=== PATIENT | female | born 1965 | race Caucasian/White ===

== ENCOUNTER 2019-12-28 19:03 | Emergency (ER) | payer BC, SELFPAY ==
--- NOTE | ~2019-12-28 | XR_ITS ---
EXAMINATION: XR shoulder RT min 2V INDICATION: Right shoulder pain TECHNIQUE: Four views of the right shoulder are submitted. COMPARISON: 01/17/2017 FINDINGS: Normal alignment. No fracture. There is mild osteoarthritis of the glenohumeral and acromio clavicular joints. Soft tissues are unremarkable. IMPRESSION: 1. No acute osseous abnormality. Reviewed, dictated and finalized at location A.
--- NOTE | 2019-12-28 19:19 | ED.UPPEXIN ---
HPI - Extremity Injury (Upper) General Chief Complaint: Extremity Injury, Upper Stated Complaint: fell right shoulder pain Time Seen by Provider: 12/28/19 19:20 Source: patient Mode of arrival: ambulatory Limitations: no limitations History of Present Illness HPI narrative: Adalgisa Meng is a 54 yo female with a PMH of diabetes, depression, hypothyroid, HTN, high cholesterol, neuropathy, who fell and hurt R shoulder. States she was just walking 5 days ago- was sweeping yesterday and hurts more now blood pressure is poorly controlled as well as diabetes. Patient's blood sugar runs high 2 days ago was 210 does not check it regularly, states she takes blood pressure medication but again her blood pressure is usually elevated Related Data Home Medications Medication Instructions Recorded Confirmed buspirone 15 mg TID 12/28/19 01/02/20 gabapentin 400 mg TID 12/28/19 01/02/20 glipizide 10 mg BID 12/28/19 01/02/20 hydrochlorothiazide 25 mg DAILY 12/28/19 01/02/20 levothyroxine 25 mcg DAILY 12/28/19 01/02/20 lisinopril 40 mg DAILY 12/28/19 01/02/20 sertraline 25 mg DAILY 12/28/19 01/02/20 simvastatin 40 mg DAILY 12/28/19 01/02/20 Allergies Allergy/AdvReac Type Severity Reaction Status Date / Time No Known Allergies Allergy Verified 12/28/19 19:07 Review of Systems Review of Systems: Narrative: CONSTITUTIONAL: Denies fever, chills, sweats. EYES: Denies visual changes, redness, discharge. ENT: Denies rhinorrhea, congestion, sore throat, otalgia. CARDIOVASCULAR: Denies chest pain, palpitations, edema. RESPIRATORY: Denies dyspnea, wheezing, cough GASTROINTESTINAL: Denies abdominal pain, nausea, vomiting, diarrhea. GENITOURINARY: Denies dysuria, hematuria, abnormal discharge SKIN: Denies rash or itching. NEUROLOGIC: Denies numbness, or focal weakness. PSYCHIATRIC: Denies anxiety or depression. Right shoulder pain, remote injury PMFSH Social History Social History Gender identity (if verbalized by the patient): Female Comments At time of signature, I agree with nursing past medical, surgical, social and family history. There is no relevant family history pertinent to the presenting complaint. Exam Narrative: Exam Narrative: GENERAL: This is a well-nourished, well-developed patient,morbidly obese, in mild distress. HEAD: normocephalic, atraumatic. EYES: Sclera clear/white. Vision is grossly intact. EARS: External ears normal, Hearing grossly intact. NOSE: External nose normal without nasal discharge, nares without redness, no rhinorrhea. THROAT: Mucous membranes moist, NECK: Neck supple, CARDIOVASCULAR: Regular rate and rhythm without murmurs, gallops, or rubs. RESPIRATORY: Clear to auscultation. Breath sounds equal bilaterally. No wheezes, rales, or rhonchi. GASTROINTESTINAL: Abdomen soft, SKIN: warm, intact with no suspicious lesions or rash, good texture and turgor. NEURO: awake, alert, and oriented to person, place and time. There were no obvious focal neurologic abnormalities. Steady gait EXTREMITIES: Normal range of motion. R shoulder pain with pain on extension, forward movement on top of shoulder and under arm, unable to full move arm posteriorly, cut out stitcher strength equal bilaterally BACK: Nontender without deformity Course Course Emergency Course: X-ray right shoulder Baclofen and tramadol due to patient's high blood pressure Vital Signs Vital signs: Vital Signs Temperature 97.5 F L 12/28/19 19:21 Pulse Rate 81 12/28/19 19:21 Respiratory Rate 18 12/28/19 19:21 Blood Pressure 190/98 H 12/28/19 19:21 Pulse Oximetry 99 12/28/19 19:21 Temperature 97.5 F L 12/28/19 19: Pulse Rate 81 12/28/19 19:21 Respiratory Rate 18 12/28/19 19:21 Blood Pressure 190/98 H 12/28/19 19:21 Pulse Oximetry 99 12/28/19 19:21 MDM - Extremity Injury (Upper) Differential Diagnosis Differential diagnosis: Likely dislocation of shoulder, fr
[2019-12-28 19:21] VITALS: BP 190/98; PULSE 81; RESP 18; TEMP 36.4; O2SAT 99
== END 2019-12-28 19:56 | disposition home or self-care (01) ==
PROVIDERS: Emergency Provider Nurse Practitioner; PCP Physician Assistant
DX: S43.81XA Sprain of other specified parts of right shoulder girdle, initial encounter (principal); E11.9 Type 2 diabetes mellitus without complications; E03.9 Hypothyroidism, unspecified; I10 Essential (primary) hypertension; W19.XXXA Unspecified fall, initial encounter
CPT/HCPCS: 73030; 99213; A4565; G0463

== ENCOUNTER 2020-03-10 15:30 | Outpatient (RCR) | payer BC, SELFPAY ==
[2020-01-10 15:00] VITALS: BP_SYST 125
--- NOTE | 2020-01-10 15:58 | PTOPEVAL ---
PHYSICAL THERAPY EVALUATION Thank you for referring Adalgisa Meng to [facility]. I recommend Adalgisa participate in physical therapy 1-2x/wk for 4-6weeks. Please review, sign, date and return this plan of care ANDREW. I agree with and certify that the following plan of care is medically necessary. Referring Physician Date Attending Provider: Luis Srivastava MD Evaluation Hx Diabetes Yes Evaluation Information Diagnosis right shoulder pain, acute Onset 12/25/2019 Subjective Information Adalgisa is here today with acute Query Text:As Reported By Patient/ right shoulder pain from a Family fall. She went to urgent care - xrays are negative. She has been babying the shoulder. She avoids lifting anything more than a couple of pounds. 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 Reports she had some difficulty turning her neck prior to the fall, but it has gotten worse. She has more frequent headaches. Also notes that there is some numbness and tingling in fingers at times. Pain Description Aching Pain Frequency Acute,Intermittent Lowest Pain Intensity 2 Greatest Pain Intensity 8 Pain Aggravating Factors Exercise/Activity,Lifting Other Pain Aggravating Factors turning steering wheel Pain Behaviors None Pain Relief Interventions Used By Medication Patient Pain Score 4: Self Report Cervical ROM Cervical Flexion (0-60) 60 Active in Degrees Cervical Flexion (0-70) 40 Passive in Degrees Cervical Lateral Flexion Right (0-50) 25 Active in Degrees Cervical Lateral Flexion Left (0-50) 40 Active in Degrees Cervical Rotation Right (0-90) 30 Active in Degrees Cervical Rotation Left (0-90) 50 Active in Degrees Scapular/ Shoulder Range of Motion Right Shoulder Flexion - Active 85 Shoulder Flexion - Passive 105 Shoulder Abduction - Active 115 Shoulder Abduction - Passive 125 Shoulder Medial Rotation - Active lateral hip Query Text:Reach Behind the Back Shoulder Lateral Rotation - Active right ear lob Query Text:Reach Behind the Head Upper Extremity Muscle Strength Testing Scapular/Shoulder Right Shoulder Flexion Strength 3- Fair - Shoulder Abduction Strength 3 Fair
--- NOTE | 2020-02-07 16:23 | PTOPEVAL ---
PHYSICAL THERAPY PLAN OF CARE UPDATE AND PROGRESS REPORT Thank you for referring Adalgisa Meng to [facility] [place] [facility] [place]. I recommend continuing physical therapy 1x/week for 4 weeks. Please review, sign, date and return this plan of care ANDREW. I agree with and certify that the following plan of care is medically necessary. Referring Physician Date Attending Provider: Luis Srivastava MD Progress Diagnosis right shoulder pain, acute Onset 12/25/2019 Subjective Information Adalgisa reports that her shoulder Query Text:As Reported By Patient/ is a little better. She only Family had one pain today while lifting a box which is alot better than 6 weeks ago. continues to be cautious lifting a half gallon of milk as certain motions continue to hurt. Her neck is also feeling much better. The main thing that contines to hurt is reaching behind her back ( pulling up pants). Right Shoulder(s) Reported Pain Level 1 Pain Description Aching Pain Frequency Acute,Intermittent Pain Aggravating Factors Exercise/Activity,Lifting Pain Behaviors None Pain Score Pain Score 1: Self Report Cervical and Lumbar ROM Cervical ROM Cervical Flexion (0-60) 60 Query Text:Active in Degrees Cervical Extension (0-70) 40 Query Text:Passive in Degrees Cervical Rotation Right (0-90) 30 Query Text:Active in Degrees Cervical Rotation Left (0-90) 50 Query Text:Active in Degrees Cervical ROM Comments reports neck pain on right side with right rotation and right side bend Upper Extremity Range of Motion Scapular/ Shoulder Range of Motion Right Shoulder Flexion - Active 145 Shoulder Abduction - Active 125 Shoulder Medial Rotation - Active lateral hip Query Text:Reach Behind the Back Shoulder Lateral Rotation - Active occiput Query Text:Reach Behind the Head Upper Extremity Muscle Strength Testing Scapular/Shoulder Right Shoulder Flexion Strength 3 Fair Shoulder Abduction Strength 3+ Fair + Shoulder Medial Rotation Strength 4- Good - Shoulder Lateral Rotation Strength 4 Good Palpation improved trigger points throughout; improved pectoralis major trigger points; continues to have severe trigger points to upper trapezi
--- NOTE | 2020-03-10 16:28 | PTOPEVAL ---
PHYSICAL THERAPY DISCHARGE NOTE Thank you for referring Adalgisa Meng to [facility]. Please review, sign, date and return this plan of care ANDREW. I agree with and certify that the following plan of care is medically necessary. Referring Physician Date Attending Provider: Luis Srivastava MD Discharge Subjective: Reports her pain is much improved. Reports she is sleeping much better. She is doing more activities to try to use the arm more and is using the arm more while working. Self Report Pain Assessment Right Shoulder(s) Reported Pain Level 1 Pain Description Aching Pain Frequency Acute,Intermittent Pain Aggravating Factors Exercise/Activity,Lifting Pain Behaviors None Interventions Used By Clinicians Ice Pain Score Pain Score 1: Self Report Upper Extremity Range of Motion Scapular/ Shoulder Range of Motion Right Shoulder Flexion - Active 160 Shoulder Abduction - Active 155 Shoulder Medial Rotation - Active lateral hip Query Text:Reach Behind the Back Shoulder Lateral Rotation - Active C3 Query Text:Reach Behind the Head Upper Extremity Muscle Strength Testing Scapular/Shoulder Right Shoulder Flexion Strength 4- Good - Shoulder Abduction Strength 4- Good - Shoulder Medial Rotation Strength 4 Good Shoulder Lateral Rotation Strength 4+ Good + Palpation Assessment Palpation Palpation trigger point noted right infraspinatus likely restricting shoulder IR PT Clinical Summary Clinical Summary Protocol: PTEVCODE PT Clinical Summary Adalgisa has participated in 8weeks of physical therapy for acute right shoulder pain. She demonstrates today WFL shoulder ROM with very minimal pain at end range. She does have a painful arc and mild pain with MMT. Her right shoulder strenght measures 4-/ 5 compared to initial 3-/5 measurement. She follows-up with physician in May. She will continue HEP. We will discharge from PT at this time . PT Services Indicated Yes Rehabilitation Potential Good Potential Barriers to Goal Achievements Severity of Condition Support Requirements For Optimal None Nahma Patient/Caregiver Informed of Benefits/ Yes Risks of Rehabilitation Patient/Caregiver Participated in Plan Yes of Care Patient/Caregiver Agreed with Problem Yes List/POC/Goals
== END 2020-03-12 10:48 | disposition home or self-care (01) ==
LOC: ANHPT 15:30
PROVIDERS: PCP Physician Assistant; Visit Provider Orthopaedic Surgery
DX: S46.011D Strain of muscle(s) and tendon(s) of the rotator cuff of right shoulder, subsequent encounter (principal)
CPT/HCPCS: 97110; 97140; 97161

== ENCOUNTER 2021-01-31 10:53 | Emergency (ER) | payer BC, SELFPAY ==
--- NOTE | ~2021-01-31 | XR_ITS ---
EXAMINATION: XR hand RT min 3V INDICATION: Right hand pain TECHNIQUE: Three views of the right hand are obtained. COMPARISON: None available FINDINGS: Bone alignment is normal. There is no fracture. There is mild osteoarthritis of multiple in terphalangeal joints. Soft tissues are unremarkable. IMPRESSION: 1. No acute osseous abnormality. Reviewed, dictated and finalized at location A.
--- NOTE | ~2021-01-31 | XR_ITS ---
EXAMINATION: XR wrist RT min 3V INDICATION: Right wrist pain TECHNIQUE: Four views of the right wrist are obtained. COMPARISON: None available FINDINGS: There is no fracture, dislocation, or subluxation. Mild osteoarthritis is noted at the agustin caphe and first carpometacarpal joints. There is mild soft tissue swelling of the wrist. IMPRESSION: 1. No acute osseous abnormality. Reviewed, dictated and finalized at location A.
[2021-01-31 11:05] VITALS: BP 199/105; PULSE 76; RESP 16; TEMP 37.1; O2SAT 100
--- NOTE | 2021-01-31 11:23 | ED.GENADULT ---
HPI - General Adult General Chief complaint: Extremity Injury, Upper Stated complaint: fell right wrist pain Time Seen by Provider: 01/31/21 11:06 Source: patient and RN notes reviewed Mode of arrival: ambulatory Limitations: no limitations History of Present Illness HPI narrative: 55-year-old female presents with right hand and wrist pain and swelling for the past 12 hours. Adalgisa reports walking and tripping over something causing her to fall forward sticking right hand out causing injury on 01/30/2021 at approximately 11 PM. Elevation, ice and Motrin approximately 6 to 8 hours ago without relief. No radiation of pain. No loss of mobility. Exacerbating factors consist of movement. Some relieving factor is immobility. Dominant hand is the RIGHT HAND. Denies hitting head with ground level fall. Denies loss of consciousness, dizziness, or seizure activity. Remains active. The patient reports she has not been diagnosed with COVID-19. The patient reports she is not waiting for the results of a COVID-19 lab test. The patient reports she does not have fever, chills, weakness, fatigue, or myalgia. The patient reports she does not have a new or worsening cough or shortness of breath. Denies chest pain. The patient reports she does not have any rhinorrhea, congestion, sore throat, loss of taste and/or smell, nausea, vomiting, abdominal pain, and diarrhea. Tolerating po intake well. Denies concerns for COVID-19 or exposures being home with limited outdoor exposure. At this time, the patient is not suspected of having COVID-19. Some parts of this dictation were generated by voice recognition software and may contain typographical and/or grammatical inaccuracies. Related Data Home Medications Medication Instructions Recorded Confirmed buspirone 15 mg TID 12/28/19 01/02/20 gabapentin 400 mg TID 12/28/19 01/02/20 glipizide 10 mg BID 12/28/19 01/02/20 hydrochlorothiazide 25 mg DAILY 12/28/19 01/02/20 levothyroxine 25 mcg DAILY 12/28/19 01/02/20 lisinopril 40 mg DAILY 12/28/19 01/02/20 sertraline 25 mg DAILY 12/28/19 01/02/20 simvastatin 40 mg DAILY 12/28/19 01/02/20 insulin glargine [Lantus U-100 SUBCUT BID 01/31/21 Insulin] nitrofurantoin monohyd/m-cryst 01/31/21 Allergies Allergy/AdvReac Type Severity Reaction Status Date / Time No Known Allergies Allergy Verified 05/15/20 14:48 Review of Systems Review of Systems: Narrative: CONSTITUTIONAL: Denies fever, chills, sweats. EYES: Denies visual changes, redness, discharge. ENT: Denies rhinorrhea, congestion, sore throat, otalgia. CARDIOVASCULAR: Denies chest pain, palpitations, edema. RESPIRATORY: Denies dyspnea, wheezing, cough. GASTROINTESTINAL: Denies abdominal pain, nausea, vomiting, diarrhea. SKIN: Denies rash or itching. Complaints of abrasions to skin. MUSCULOSKELETAL: Denies acute back pain or myalgia. Complains of right hand and wrist pain and swelling. NEUROLOGIC: Denies numbness or focal weakness. PSYCHIATRIC: Denies anxiety or depression. All other systems reviewed & are unremarkable except as noted in HPI and below. [facility] Past Medical History Medical History (Updated 02/01/21 @ 00:01 by Kumar Limon) Depression Diabetes High cholesterol HTN (hypertension) Hypothyroid Neuropathy Obese Traumatic tear of right rotator cuff Surgical History Surgical History (Updated 01/31/21 @ 11:42 by JOSE López) History of arthroscopic knee surgery Left History of oral surgery Due to a pencil stuck in palate of mouth Family History Family History (Updated 01/31/21 @ 11:43 by JOSE López) Father Cancer Mother Breast cancer Social History Social History (Updated 01/31/21 @ 11:43 by JOSE López) Smoking status: Former smoker Tobacco type: cigarettes Second hand tobacco smoke exposure: No Smoking end date: 08/16/05 Alcohol intake: current Substance use: never S
[2021-01-31] MEDS: TETANUS,DIPHTHERIA,AC PERTUSSIS ADULT (0.5 ML) BOOSTRIX IM (11:42)
[2021-01-31] MEDS: KETOROLAC (*BKC) 60 MG/2 ML VIAL IM (11:43)
[2021-01-31 12:15] VITALS: BP 178/82
== END 2021-01-31 12:15 | disposition home or self-care (01) ==
PROVIDERS: Emergency Provider Nurse Practitioner Family; PCP Physician Assistant
DX: S63.501A Unspecified sprain of right wrist, initial encounter (principal); W18.00XA Striking against unspecified object with subsequent fall, initial encounter; S63.91XA Sprain of unspecified part of right wrist and hand, initial encounter; T14.8XXA Other injury of unspecified body region, initial encounter; Z23 Encounter for immunization
CPT/HCPCS: 73110; 73130; 90471; 90715; 96372; 99213; G0463; J1885

== ENCOUNTER 2021-03-11 14:45 | Outpatient (CLI) | payer BC, SELFPAY ==
--- NOTE | 2021-03-11 15:00 | ECHO_ITS ---
Patient Info Name: Adalgisa Meng Age: 55 years : 1965 Gender: Female Ht: 66 in Wt: 218 lbs BSA: 2.19 m2 HR: 78 bpm BP: 166 / 78 mmHg Heart Rhythm: Sinus Rhythm Technical Quality: Good Exam Date: 03/11/2021 3:58 PM Exam Location: [facility] Patient Status: Outpatient Admit Date: 03/11/2021 Staff Ordering Physician: MoiDianna Private Duty Lpn: Helena Nath RDCS Attending Provider: MoiDianna Referring Physician: Moi BURGER; Exam Type: CA echo doppler color flow Study Info Indications - heart failure c/o chest pain Complete two-dimensional, color flow and Doppler transthoracic echocardiogram is performed. Summary 1. Complete two-dimensional, color flow and Doppler transthoracic echocardiogram is performed. 2. Left ventricular chamber size and systolic function are normal with no regional wall motion abnormalities with an estimated ejection fraction of 60-65%. Moderate LVH. Grade 2 diastolic dysfunction is present. 3. Left atrial chamber dimension is mildly enlarged. 4. There is moderate aortic valve sclerosis with no stenosis. Trace aortic insufficiency. 5. No pulmonary hypertension, estimated pulmonary arterial systolic pressure is 27 mmHg. 6. Normal sinus rhythm. Left Ventricle Left ventricular chamber dimension is normal. Left ventricular systolic function is normal, estimated at 60-65%. There is moderately increased left ventricular wall thickness. Left ventricular septal wall motion is normal. The left ventricular diastolic function is grade II diastolic dysfunction. Left ventricular chamber size and systolic function are normal with no regional wall motion abnormalities with an estimated ejection fraction of 60-65%. Moderate LVH. Grade 2 diastolic dysfunction is present. Right Ventricle Right ventricular chamber dimension is normal. Right ventricular systolic function is normal. Left Atria Left atrial chamber dimension is mildly enlarged. Right Atria Right atrial chamber dimension is normal. Aortic Valve The aortic valve is trileaflet. There is moderate aortic valve sclerosis with no stenosis. Trace aortic insufficiency. There is no aortic valve stenosis. There is trace aortic valve regurgitation. Pulmonic Valve The pulmonic valve is normal. There is no pulmonic valve stenosis. There is no pulmonic regurgitation. Mitral Valve The mitral valve has normal leaflets. There is no mitral valve stenosis. There is no mitral valve regurgitation. Tricuspid Valve The tricuspid valve leaflets are normal. There is no significant tricuspid valve stenosis. There is trace tricuspid valve regurgitation. No pulmonary hypertension, estimated pulmonary arterial systolic pressure is 27 mmHg. Pericardium/Pleural The pericardium appears normal. There is no pericardial effusion. Inferior Vena Cava Normal inferior vena cava with >50% collapse upon inspiration consistent with Empty right atrial pressure, 10 mmHg. Aorta The aortic root size at the sinus of Valsalva is normal. The prox ascending aorta size is normal. Left Ventricular Outflow Tract Name Value Normal LVOT 2D LVOT Diameter 2.0 cm LVOT Do
== END 2021-03-11 14:46 | disposition home or self-care (01) ==
PROVIDERS: PCP Physician Assistant; Visit Provider Physician Assistant
DX: I50.9 Heart failure, unspecified (principal); I70.0 Atherosclerosis of aorta
CPT/HCPCS: 93306

== ENCOUNTER 2021-07-23 16:32 | Outpatient (CLI) | payer BC, SELFPAY ==
--- NOTE | ~2021-07-23 | XR_ITS ---
EXAMINATION:XR_CERV2-3V_CR DATE: 07/23/2021 17:09 INDICATION: Neck pain TECHNIQUE: AP, lateral, lateral swimmers and odontoid views of the cervical spine are provided. COMPARISON: None FINDINGS: There are 2 mm of anterolisthesis of C3 on C4. The odontoid is intact. No fracture is ident ified. The vertebral body heights are maintained. There is moderate loss of intervertebral disc space height at C5-6 and C6-7. There is moderate to severe facet and vertebral joint osteoarthritis of the lower cervical spine. Prevertebral soft tissues are normal. IMPRESSION: 1. Moderate cervical spondylosis without acute findings. Reviewed, dictated and finalized at location A. 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
--- NOTE | ~2021-07-23 | XR_ITS ---
EXAMINATION: XR lumbar spine 2-3V DATE: 07/23/2021 17:09 INDICATION: Low back pain TECHNIQUE: Anteroposterior and lateral views of the lumbar spine, and cone-down lateral view of the l umbosacral junction were obtained. COMPARISON: None. FINDINGS: There are 3 mm of anterolisthesis of L3 on L4. The vertebral body heights are maintained. T here are 20 degrees of lumbar levoscoliosis. There is moderate loss of intervertebral disc space heig ht throughout the lumbar spine. No fracture is identified. Small degenerative osteophytes project fro m the anterior endplates of multiple vertebral bodies. There is moderate facet osteoarthritis of the lower lumbar spine. IMPRESSION: 1. Moderate lumbar spondylosis without acute findings. Reviewed, dictated and finalized at location A. 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
== END 2021-07-23 16:33 ==
LOC: MICIMG 16:33
PROVIDERS: PCP Physician Assistant; Visit Provider Physician Assistant
DX: M47.816 Spondylosis without myelopathy or radiculopathy, lumbar region (principal); M47.812 Spondylosis without myelopathy or radiculopathy, cervical region
CPT/HCPCS: 72040; 72100

== ENCOUNTER 2021-09-14 10:24 | Emergency (ER) | payer BC, SELFPAY ==
[2021-09-14 10:37] VITALS: BP 127/87; PULSE 72; RESP 18; TEMP 36.9; O2SAT 100
--- NOTE | 2021-09-14 11:19 | ED.HA ---
HPI - Headache General Chief Complaint: Headache Stated Complaint: Headache,Blurry Vision Time Seen by Provider: 09/14/21 11:00 Source: patient, RN notes reviewed and old records reviewed Mode of arrival: ambulatory Limitations: no limitations History of Present Illness HPI Narrative: 56-year-old female presents to the [facility] with complaints that at 230 this morning had a sharp pain in the side of her head and her vision was very foggy. States that for 1 minute the side of her face felt numb. Currently has no signs or symptoms. Has not taken anything for her symptoms. Neuro intact. MD elicited complaint: headache Related Data Home Medications Medication Instructions Recorded Confirmed buspirone 15 mg TID 12/28/19 09/14/21 gabapentin 400 mg TID 12/28/19 09/14/21 glipizide 10 mg BID 12/28/19 09/14/21 hydrochlorothiazide 25 mg DAILY 12/28/19 09/14/21 levothyroxine 25 mcg DAILY 12/28/19 09/14/21 lisinopril 40 mg DAILY 12/28/19 09/14/21 sertraline 25 mg DAILY 12/28/19 09/14/21 simvastatin 40 mg DAILY 12/28/19 09/14/21 insulin glargine [Lantus U-100 20 unit SUBCUT BID 01/31/21 09/14/21 Insulin] Allergies Allergy/AdvReac Type Severity Reaction Status Date / Time No Known Allergies Allergy Verified 09/14/21 10:25 Review of Systems Review of Systems: All systems reviewed & are unremarkable except as noted in HPI and below Constitutional: Constitutional: Reports no additional constitutional complaints, Denies chills and Denies fever(s) Eyes: Eyes: Reports as per HPI, Reports change in vision (For 1 minute foggy ) and Denies photophobia ENT: Reports system reviewed and no additional complaints, except as documented Cardiovascular: Cardiovascular: Reports no additional cardiovascular complaints Respiratory: Respiratory: Reports no additional respiratory complaints Gastrointestinal: Gastrointestinal: Reports no additional gastrointestinal complaints Musculoskeletal: Musculoskeletal: Reports no additional musculoskeletal complaints Integumentary/Breasts: Skin/Breast: Reports system reviewed and no additional complaints, except as docu Neurologic: Denies confusion, Denies vertigo, Denies dizziness, Denies syncope, Reports headache(s), Denies focal weakness, Reports numbness (Her cheek right) and Denies weakness Psychiatric: Psychiatric: Reports no additional psychiatric complaints Allergic/Immunologic: Allergic/Immunologic: Reports no additional allergic/immunologic complaints [facility], LAT[facility] Past Medical History Medical History (Updated 09/14/21 @ 19:59 by Yoly Sifuentes) Depression Diabetes High cholesterol HTN (hypertension) Hypothyroid Neuropathy Obese Traumatic tear of right rotator cuff Surgical History Surgical History History of arthroscopic knee surgery Left History of oral surgery Due to a pencil stuck in palate of mouth Family History Family History Father Cancer Mother Breast cancer Social History Social History Smoking status: Former smoker Tobacco type: cigarettes Second hand tobacco smoke exposure: No Smoking end date: 08/16/05 Alcohol intake: current Substance use: never Substance use type: does not use Gender identity (if verbalized by the patient): Female Sexual Orientation (if Verbalized by the Patient): Straight or Heterosexual Comments At the time of my signature, I reviewed and agree with the nursing past medical, surgical, social, and family history. There is no relevant family history pertinent to the patient complaint. Exam Const: General: no acute distress, alert and ill appearing chronically; not acutely Nutritional Appearance: well nourished and obese Orientation/consciousness: patient oriented x3 Limitations: no limitations HENMT: Head: normal to inspection Ears: external ear
== END 2021-09-14 11:40 | disposition home or self-care (01) ==
PROVIDERS: Emergency Provider Nurse Practitioner
DX: R51.9 Headache, unspecified (principal); Z87.891 Personal history of nicotine dependence; E78.00 Pure hypercholesterolemia, unspecified; I10 Essential (primary) hypertension; E03.9 Hypothyroidism, unspecified; E11.40 Type 2 diabetes mellitus with diabetic neuropathy, unspecified; E66.9 Obesity, unspecified; Z68.36 Body mass index [BMI] 36.0-36.9, adult; F32.9 Major depressive disorder, single episode, unspecified
CPT/HCPCS: 99211; G0463

== ENCOUNTER 2021-10-10 09:50 | Outpatient (CLI) | payer BC, SELFPAY ==
--- NOTE | ~2021-10-10 | XR_ITS ---
EXAMINATION: XR hand LT min 3V INDICATION: Left hand pain TECHNIQUE: Three views of the left hand are obtained. COMPARISON: None available FINDINGS: There is no fracture, dislocation, or subluxation. 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 Soft tissues are unremarkable. IMPRESSION: 1. No acute osseous abnormality. Reviewed, dictated and finalized at location F. 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
--- NOTE | ~2021-10-10 | XR_ITS ---
EXAMINATION: XR hand RT min 3V INDICATION: Right hand pain TECHNIQUE: Three views of the right hand are obtained. COMPARISON: 01/31/2021 FINDINGS: There is no fracture, dislocation, or subluxation. There is mild osteoarthritis of multiple interphalangeal joints. The soft tissues are unremarkable. IMPRESSION: 1. No acute osseous abnormality. Reviewed, dictated and finalized at location F. SWAMPER
== END 2021-10-10 09:51 ==
LOC: MICIMG 09:54
PROVIDERS: Visit Provider Physician Assistant
DX: M79.641 Pain in right hand (principal); M79.642 Pain in left hand
CPT/HCPCS: 73130

== ENCOUNTER 2022-05-17 19:37 | Emergency (ER) | payer BC, SELFPAY ==
--- NOTE | ~2022-05-17 | XR_ITS ---
EXAM: XR foot RT min 3V DATE: 05/17/2022 19:56 HISTORY: rt 3rd toe pain s/p injury 2 days ago . COMPARISON: Comminuted fracture of the tuft of the right third distal phalange . No lytic or blastic lesion. Achilles enthesopathy. Plantar spur. No erosion or periosteal change. Soft tissues within nor mal limits. IMPRESSION: Limited lateral view. Comminuted fracture of the chest of the right third distal phalange . Reviewed, dictated and finalized at location K. IMPRESSION: Limited lateral view. Comminuted fracture of the chest of the right third distal phalange.
--- NOTE | 2022-05-17 19:43 | ED.LOWEXIN ---
HPI - Extremity Injury (Lower) General Chief Complaint: Extremity Injury, Lower Stated Complaint: Right Foot Third Toe Pain Time Seen by Provider: 05/17/22 19:59 Source: patient and RN notes reviewed Mode of arrival: ambulatory Limitations: no limitations History of Present Illness HPI Narrative: 56-year-old female presents to the [facility] with third toe right foot pain since Tuesday, 2 days. Reports the tetanus is up-to-date Patient states that she was at her wedding on Tuesday when a decoration had fallen onto her toe. Has been taking Tylenol and placing Neosporin on the abrasion. Bruising noted to just the dorsal aspect of the toe. Sensation intact distal, capillary refill under 2 seconds. Positive pedal pulse Onset (ago): day(s) (2) Related Data Home Medications Medication Instructions Recorded Confirmed buspirone 15 mg tablet 15 mg TID 12/28/19 05/17/22 gabapentin 400 mg capsule 400 mg TID 12/28/19 05/17/22 glipizide 10 mg tablet 10 mg BID 12/28/19 05/17/22 hydrochlorothiazide 25 mg tablet 25 mg DAILY 12/28/19 05/17/22 levothyroxine 25 mcg tablet 25 mcg DAILY 12/28/19 05/17/22 lisinopril 40 mg tablet 40 mg DAILY 12/28/19 05/17/22 sertraline 25 mg tablet 25 mg DAILY 12/28/19 05/17/22 simvastatin 40 mg tablet 40 mg DAILY 12/28/19 05/17/22 insulin glargine 100 unit/mL 20 unit subcut BID 01/31/21 05/17/22 subcutaneous solution (Lantus U-100 Insulin) Allergies Allergy/AdvReac Type Severity Reaction Status Date / Time No Known Allergies Allergy Verified 05/17/22 19:40 Review of Systems Review of Systems: All systems reviewed & are unremarkable except as noted in HPI and below Constitutional: Constitutional: Reports no additional constitutional complaints, Denies chills and Denies fever(s) Eyes: Eyes: Reports no additional eye complaints ENT: Reports system reviewed and no additional complaints, except as documented Cardiovascular: Cardiovascular: Reports no additional cardiovascular complaints Respiratory: Respiratory: Reports no additional respiratory complaints Gastrointestinal: Gastrointestinal: Reports no additional gastrointestinal complaints Musculoskeletal: Musculoskeletal: Reports as per HPI Integumentary/Breasts: Skin/Breast: Reports system reviewed and no additional complaints, except as docu Neurologic: Reports system reviewed and no additional complaints, except as documented Psychiatric: Psychiatric: Reports no additional psychiatric complaints Allergic/Immunologic: Allergic/Immunologic: Reports no additional allergic/immunologic complaints PMFSH Past Medical History Medical History Depression Diabetes High cholesterol HTN (hypertension) Hypothyroid Neuropathy Obese Traumatic tear of right rotator cuff Surgical History Surgical History History of arthroscopic knee surgery Left History of oral surgery Due to a pencil stuck in palate of mouth Family History Family History Father Cancer Mother Breast cancer Social History Social History Smoking status: Former smoker Tobacco type: cigarettes Second hand tobacco smoke exposure: No Smoking end date: 08/16/05 Alcohol intake: current Substance use: never Substance use type: does not use Gender identity (if verbalized by the patient): Female Sexual Orientation (if Verbalized by the Patient): Straight or Heterosexual Comments At the time of my signature, I reviewed and agree with the nursing past medical, surgical, social, and family history. There is no relevant family history pertinent to the patient complaint. Exam Const: General: healthy appearing, no acute distress, alert and well nourished Nutritional Appearance: well nourished and obese Orientation/
[2022-05-17 19:46] VITALS: BP 181/100; PULSE 74; RESP 16; TEMP 37.2; O2SAT 99
[2022-05-17 19:50] VITALS: BP 164/78
== END 2022-05-17 20:20 | disposition home or self-care (01) ==
PROVIDERS: Emergency Provider Nurse Practitioner; PCP Physician Assistant
DX: S92.531A Displaced fracture of distal phalanx of right lesser toe(s), initial encounter for closed fracture (principal); W20.8XXA Other cause of strike by thrown, projected or falling object, initial encounter; E78.00 Pure hypercholesterolemia, unspecified; I10 Essential (primary) hypertension; E03.9 Hypothyroidism, unspecified; E11.40 Type 2 diabetes mellitus with diabetic neuropathy, unspecified; E66.9 Obesity, unspecified; Z68.36 Body mass index [BMI] 36.0-36.9, adult; Z87.891 Personal history of nicotine dependence
CPT/HCPCS: 73630; 99214; G0463

== ENCOUNTER 2022-06-10 07:34 | Outpatient (CLI) | payer BC, SELFPAY ==
--- NOTE | 2022-07-04 17:38 | WPDSLEEPSTUD ---
Sleep Study Date of Study: 06/10/22 Ordering Provider: Dianna Prater, ISABEL Interpreting Physician: Kandi Myers MD Sleep Study Type: Split Polysomnogram Height: 1.68 m Weight: 99.79 kg Body Mass Index: 35.5 Neck Circumference (inches): 17 Stamping Ground: 9 Reason for Sleep Study Poor quality sleep, waking during the night, falling asleep during the day Sleep History Adalgisa Woo is a 57 year-old woman with a history of poor quality sleep. She wakes up throughout the night. She is excessively sleepy during the day. She rarely awakens from sleep feeling short of breath. She does not awaken at night with heartburn, belching or coughing. She occasionally snores, occasionally loudly enough that others complain. She occasionally has trouble sleeping with a cold. She rarely wakes up gasping for breath at night. She rarely has breathing problems at night observed by others. She does not sweat excessively at night. She rarely notices her heart pounding or beating irregularly at night. She rarely falls asleep during the day. She occasionally falls asleep involuntarily. On rare occasion, she falls asleep while driving. She does not have loss of muscle tone with strong emotion. She rarely has daytime difficulties due to excessive sleepiness. She rarely feels paralyzed on waking or falling asleep. She occasionally has vivid dreamlike scenes on waking or falling asleep. She does not feel afraid to go to sleep. She rarely has nightmares. She rarely remembers her dreams. She frequently has racing thoughts. She frequently has feelings of sadness and depression. She frequently has anxiety. She rarely has muscular tension. She rarely notices parts of her body jerking. She does not kick at night. She frequently has crawling and aching feelings in her legs and frequently has leg pain during the night. She she does not have morning jaw pain. She rarely grinds her teeth during sleep. She frequently is bothered by pain during the day. She occasionally is awakened by pain at night. She frequently wakes up feeling stiff in the morning. She occasionally wakes up with sore or achy muscles. She frequently wakes up with pain in the neck and spine. She does not have a normal set bedtime. The amount of time it takes her to fall asleep is variable. She may wake up 1-2 times at night to go to the bathroom. After she wakes during the night, she may stay awake for 1-3 hours. These awakenings occur in the middle of the night. She estimates getting 6 hours of sleep at night. She does not have a set wake-up time. She does not take naps during the afternoon or evening. A short nap lasting 10 or 15 minutes is not refreshing. Habits: Quit tobacco 10 years ago. Caffeine, 4 beverages per day. No alcohol or recreational drugs. [facility] Past Medical History Medical History Depression Diabetes High cholesterol HTN (hypertension) Hypothyroid Neuropathy Obese Traumatic tear of right rotator cuff Surgical History Surgical History History of arthroscopic knee surgery Left History of oral surgery Due to a pencil stuck in palate of mouth Family History Family History Father Cancer Mother Breast cancer Social History Social History Smoking status: Former smoker Tobacco type: cigarettes Second hand tobacco smoke exposure: No Smoking end date: 08/16/05 Alcohol intake: current Substance use: never Substance use type: does not use Gender identity (if verbalized by the patient): Female Sexual Orientation (if Verbalized by the Patient): Straight or Heterosexual Medications Home Medications Medication Instructions Recorded Confirmed Type buspirone 15 mg tablet 15 mg TID 12/27/
[2022-07-04 17:41] VITALS: BMI 35.5
== END 2022-06-11 06:57 | disposition home or self-care (01) ==
PROVIDERS: PCP Physician Assistant; Visit Provider Physician Assistant
DX: G47.33 Obstructive sleep apnea (adult) (pediatric) (principal); G47.30 Sleep apnea, unspecified; Z68.35 Body mass index [BMI] 35.0-35.9, adult
CPT/HCPCS: 95810; 95811

== ENCOUNTER 2023-09-22 15:48 | Outpatient (CLI) | payer OTHER, SELFPAY ==
--- NOTE | ~2023-09-22 | MR_ITS ---
EXAMINATION: MR cervical spine wo con DATE: 09/22/2023 16:32 INDICATION: Cervical radiculopathy. TECHNIQUE: Magnetic resonance imaging (MRI) of the cervical spine was performed without intravenous c ontrast. Sequences included sagittal T2-weighted FSE, sagittal T2-weighted FS FSE, sagittal T1-weight ed FSE, axial MERGE, and axial T2-weighted FSE. COMPARISON: Cervical spine radiographs 07/23/2021 FINDINGS: There is 2 mm anterolisthesis of C3 on C4 and C4 on C5. Vertebral body heights are normal. There is mildly decreased disc height at C3-C4 and C4-C5 and severely decreased disc height at C5-C6 and C6-C7. The spinal cord signal intensity is normal. The following disc levels are specifically dis cussed: C2-C3: The disc does not extend beyond the endplate margin. There is no uncovertebral joint osteoarth ritis. There is moderate right and severe left facet joint osteoarthritis. There is mild left neural foraminal stenosis. There is no central canal stenosis. C3-C4: The disc does not extend beyond the endplate margin. There is no uncovertebral joint osteoarth ritis. There is ankylosis of the facet joints with severe hypertrophy. There is mild bilateral neural foraminal stenosis. There is no central canal stenosis. C4-C5: There is a central extrusion. There is mild bilateral uncovertebral joint osteoarthritis. Ther e is severe bilateral facet joint osteoarthritis. There is mild bilateral neural foraminal stenosis. There is mild central canal stenosis. C5-C6: There is a central extrusion. There is severe bilateral uncovertebral joint osteoarthritis. Th ere is moderate bilateral facet joint osteoarthritis. There is moderate bilateral neural foraminal st enosis. There is moderate central canal stenosis with ventral and dorsal indentation of the spinal co rd. C6-C7: There is a left central extrusion. There is severe bilateral uncovertebral joint osteoarthriti s. There is moderate right and severe left facet joint osteoarthritis. There is mild bilateral neural foraminal stenosis. There is mild central canal stenosis with ventral indentation of the spinal cord . C7-T1: There is a central extrusion. There is no uncovertebral joint osteoarthritis. There is severe bilateral facet joint osteoarthritis. There is mild bilateral neural foraminal stenosis. There is no central canal stenosis. IMPRESSION: 1. Severe cervical spondylosis. Reviewed, dictated and finalized at location E. [employer]
== END 2023-09-22 15:49 ==
PROVIDERS: PCP Physician Assistant; Visit Provider Physician Assistant
DX: M43.02 Spondylolysis, cervical region (principal)
CPT/HCPCS: 72141

== ENCOUNTER 2023-12-07 16:22 | Outpatient (CLI) | payer OTHER, SELFPAY ==
--- NOTE | ~2023-12-07 | MM_ITS ---
EXAMINATION: MM screening moreno BI w wes HISTORY: Screening mammogram, family history of breast cancer in her mother. TECHNIQUE: Craniocaudal and mediolateral oblique 3-D tomosynthesis images were obtained and synthetic 2-D images were generated. CAD analysis was submitted and interpreted. COMPARISON: 01/17/2017 BREAST PARENCHYMAL COMPOSITION:Not Dense. There are scattered areas of fibroglandular density. FINDINGS: No suspicious mass, calcification, or architectural distortion are identified in either rosalba ast to suggest malignancy. There has been no suspicious interval change. IMPRESSION: No mammographic evidence of malignancy. Recommend routine screening mammography in one year. BI-RADS Category 1: Negative Reviewed, dictated and finalized at location .
== END 2023-12-07 16:23 ==
PROVIDERS: PCP Physician Assistant; Visit Provider Physician Assistant
DX: Z12.31 Encounter for screening mammogram for malignant neoplasm of breast (principal)
CPT/HCPCS: 77063; 77067

== ENCOUNTER 2024-04-09 16:38 | Outpatient (CLI) | payer OTHER, SELFPAY ==
--- NOTE | ~2024-04-09 | XR_ITS ---
EXAMINATION: XR hip BI 2V w AP pelvis DATE: 04/09/2024 17:22 INDICATION: Bilateral hip pain. TECHNIQUE: An anteroposterior view of the pelvis and 2 views of each hip were obtained. COMPARISON: None. FINDINGS: There is lumbar levoscoliosis and severe spondylosis. No fracture. There is mild osteoarthr itis of the hips. IMPRESSION: 1. Mild osteoarthritis of the hips. Reviewed, dictated and finalized at location A.
== END 2024-04-09 16:39 ==
LOC: MICIMG 16:39
PROVIDERS: PCP Physician Assistant; Visit Provider Physician Assistant
DX: M16.0 Bilateral primary osteoarthritis of hip (principal)
CPT/HCPCS: 73521

== ENCOUNTER 2024-10-16 15:42 | Outpatient (CLI) | payer OTHER, SELFPAY | END 2024-10-16 15:43 | disposition home or self-care (01) | PROVIDERS: PCP Physician Assistant; Visit Provider Physician Assistant | DX: M47.812 Spondylosis without myelopathy or radiculopathy, cervical region (principal) | CPT/HCPCS: 72141 ==

== ENCOUNTER 2024-11-09 | Day surgery (SDC) | payer OTHER, SELFPAY ==
[2024-10-30 16:05] VITALS: BMI 35.5
--- OUTSIDE RECORDS SUMMARY | 2024-11-09 00:03 | XMS_ITS | Patient Health Record ---
Author Organization [facility] Address [address] [place], [place] [id number] Care Team Providers Care Manager Critical Care Unit Name Role Phone Answer, Declined Unavailable Unavailable YUE WILLIAMSON Unavailable [phone] Reason For Referral No Information Medications Medication SIG (Take, Route, Frequency, Duration) Notes Start Date End Date Status Mounjaro 5 MG/0.5ML as directed Subcutaneous Active Semglee (yfgn) 100 UNIT/ML as directed Subcutaneous Active Simvastatin 80 MG 1 tablet in the even ing Orally Once a day Active Magnesium Oxide 400 MG 1 tablet as neede d Orally Once a day Active metFORMIN HCl 1000 MG 1 tablet with a me al Orally Once a day Active Celecoxib 200 MG 1 capsule with food Orally Once a day Active busPIRone HCl 5 MG 1 tablet Orally Twic e a day Active Sertraline HCl 100 MG 1 tablet Orally On ce a day Active Lisinopril 40 MG 1 tablet Orally Once a day Active hydroCHLOROthiazide 25 MG 1 tablet in th e morning Orally Once a day Active Farxiga 10 MG 1 tablet Orally Once a day Active Social History Tobacco Use: Social History Observation Description Date Details (start date - stop date) Former Smoker NA - NA Tobacco Use/Smoking Question Answer Notes Tobacco use: former smoker How long has it been since you last smoked? > 10 years Additional Findings: Tobacco Non-User Tolerant n on-smoker Alcohol Screen (Audit-C) Question Answer Notes Did you have a drink containing alcohol in the p ast year? 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 The patient was instructed to check his feet daily to report any problems or signs of infection immediately. The patient was provided written information on Diabetic Foot Care as well as the Amputation Prevention Guide. B6 And B12: Recommend that the patient take over the counter Vitamin B6 and B12. B6 pills should be taken 2-3 times a day. Vitamin B12 should be taken once a day as an under the tongue lozenge. Patient will discuss with her GP about transitioning from gabapentin to lyrica 04/09/2024 Other hereditary and idiopathic neuropathies (ICD-10 - G60.8) 04/09/2024 Pain in right foot (ICD-10 - M79.671) 04/09/2024 Left foot pain (ICD-10 - M79.672) Plan Of Treatment Next Appt Details Provider Name:YUE WILLIAMSON, 04:30:00 PM, [address], [facility], [place], [place], [id number], Insurance Providers Payer Name Payer Address Payer Phone Subscriber Number Group Number Insured Name Patient Relationship to Insured Coverage Start Date Coverage End Date [employer]. [address] [address] [place], [place] [id number] Adalgisa Mcclure Self - patient is the insured Medical (General) History Medical History History ICD Code Diabetic Surgical History Surgery Date(Month/Year) Knee Surgery left 2000
--- OUTSIDE RECORDS SUMMARY | 2024-11-09 00:03 | XMS_ITS ---
Author Organization [facility] Address [address] [place], [place] [id number] Care Team Providers Care Building Materials Sales Attendant Name Role Phone Answer, Declined Unavailable Unavailable YUE WILLIAMSON Unavailable [phone] REASON FOR VISIT The patient has neuropathy due to either diabetes or herniated discs in her back. She takes gabapentin 800mg a day divided by two doses. She denies any history of foot wounds Medications Medication SIG (Take, Route, Frequency, Duration) Notes Start Date End Date Status busPIRone HCl 5 MG 1 tablet Orally Twic e a day Active Sertraline HCl 100 MG 1 tablet Orally On ce a day Active Lisinopril 40 MG 1 tablet Orally Once a day Active hydroCHLOROthiazide 25 MG 1 tablet in th e morning Orally Once a day Active Farxiga 10 MG 1 tablet Orally Once a day Active Semglee (yfgn) 100 UNIT/ML as directed [...] with food Orally Once a day Active Mounjaro 5 MG/0.5ML as directed Subcutaneous Active Social History Tobacco Use: Social History [...] Location Date Provider Diagnosis [facility] [place] [address] [place], [place] [id number] 04/09/2024 YUE WILLIAMSON Type 2 diabetes mellitus [...] pain (ICD-10 - M79.672) Plan Of Treatment Treatment Notes Assessment Notes Type 2 diabetes mellitus wit h other diabetic neurological complication Diabetic Foot Care: The patient was educated [...] GP about transitioning from gabapentin to lyrica Next Appt Details Follow Up: 1 Year, Reason: Provider Name:YUE WILLIAMSON, 04:30:00 PM, [address], [place], [place], [id number], Progress Notes * Harpreet WOO: 4 (59 yo F)Acc No.[id number]:04/09/2024 Progress Notes Patient: Adalgisa JUAREZ Provider: Rafaela Williamson DPM :1965 A ge:58 Y S ex:Female Date:04/09/2024 Address:[address] [place], [place] [phone] Subjective: * Chief Complaints: * 1 . The patient has neuropathy due to either diabetes or herniated discs in her back. She takes gabapentin 800mg a day divided by two doses. She denies any history of foot wounds. * HPI: H PI: New Complaint P atient presents for a new patient consultation., Patient complains of an issue to neuropathy. , Duration of problem is 6 months to a year. Patient denies any injury., . Says it was discussed before but thats as far as it went. Nerves have been feeling jumpy for around a week and sometimes painful., MA: mf. * ROS: G eneral / Constitutional: Patient denies c hills, fever, weakness, night sweats. M usculoskeletal: Patient denies c hildhood foot problems, weakness. ? P eripheral Vascular: Patient denies u lceration of feet, cold extremities. ? S kin: Patient denies u lcerations, discoloration. ? N eurologic: Patient denies b alance difficulty, confusion, difficulty speaking, dizziness. P atient complains of n umbness, burning/ tingling. * Medical History: D iabetic. * Surgical History: K nee Surgery left 2000. * Family History: F ather: unknown. H usband: alive. M other: unknown. * Social History: T obacco Use: T obacco Use/Smoking T obacco use: f ormer smoker, H ow long has it been since you last smoked? > 10 years, A dditional Findings: Tobacco Non-User T olerant non-smoker. D rugs/Alcohol: A lcohol Screen (Audit-C) D id you have a drink containing alcohol in the past year? N o, P oints 0 , I nterpretation N egative. * Medications: T aking Mounjaro 5 MG/0.5ML Solution Pen-injector as directed Subcutaneous , Taking Semglee (yfgn) 100 UNIT/ML Solution Pen-injector as directed Subcutaneous , Taking Simvastatin 80 MG Tablet 1 tablet in the evening Orally Once a day , Taking Magnesium Oxide 400 MG Tablet 1 tablet as needed Orally Once a day , Taking metFORMIN HCl 1000 MG Tablet 1 tablet with a meal Orally Once a day , Taking Celecoxib 200 MG Capsule 1 capsule with food Orally Once a day , Taking busPIRone HCl 5 MG Tablet 1 tablet Orally Twice a day , Taking Sertraline HCl 100 MG Tablet 1 tablet Orally Once a day , Taking Lisinopril 40 MG Tablet 1 tablet Orally Once a day , Taking hydroCHLOROthiazide 25 MG Tablet 1 tablet in the morning Orally Once a day , Taking Farxiga 10 MG Tablet 1 tablet Orally Once a day , Medication List reviewed and reconciled with the patient Objective: * Vitals: * Examination: C onstitutional: Constitutional T he patient is awake, alert, well developed, well groomed and well nourished.. D ermatologic: Skin findings: S kin is warm, dry, supple with no breaks in the skin.. V ascular: Dorsalis pedis pulse: 2 /4, bilateral. Posterior tibial pulse: 2 /4, bilaterally. Capillary refill: l ess than 3 seconds. Edema: N o edema, bilateral. N eurologic: [place] 5.07 monofilament a bsent sensorium to digits via 5.07g monofilament. M usculoskeletal: Muscle Strength M uscle strength is 5/5 in regards to dorsiflexion, plantarflexion, inversion, and eversion in bilateral lower extremities.. ? Assessment: * Assessment: 1. T ype 2 diabetes mellitus with other diabetic neurological complication - E11.49 (Primary)? 2. O ther hereditary and idiopathic neuropathies - G60.8 3 .?Pain in right foot - M79.671 4 . L eft foot pain - M79.672 Plan: * Treatment: * Follow Up: 1 Year * Billing Information: * Visit Code: 22332 Office Visit, New Pt., Level 3. * Procedure Codes: * Electronic signature of YUE WILLIAMSON DPM on 11/09/2024 at 12:03 AM CDT Sign off status: Pending * Provider: Rafaela Williamson DPM Date: 0 04/09/2024 Generated for Charissa jeff/Cesario/Afshan on: 0 11/09/2024 12:03 AM CDT History and Physical Notes * HPI (History of Present Illness) Category Sub-Category Detail Notes Category Not es HPI New Complaint Patient presents for a new patient consultation., Patient complains of an issue to neuropathy. , Duration of problem is 6 months to a year. Patient denies any injury., . Says it was discussed before but thats as far as it went. Nerves have been feeling jumpy for around a week and sometimes painful., MA: mf Examination Category Sub-Category Detail Notes Category Not es Dermatologic Skin findings: Skin is warm, dr y, supple with no breaks in the skin. Neurologic [place] 5.07 monofilament absent sensorium to digits via 5.07g monofilament Vascular Dorsalis pedis pulse: 2/4, bilateral Edema: No edema, bilateral Capillary refill: less than 3 seconds Posterior tibial pulse: 2/4, bilaterally Musculoskeletal Muscle Strength Muscle strength is 5/5 in regards to dorsiflexion, plantarflexion, inversion, and eversion in bilateral lower extremities. Constitutional Constitutional The patient is a wake, alert, well developed, well groomed and well nourished.
--- OUTSIDE RECORDS SUMMARY | 2024-11-09 00:03 | XMS_ITS ---
Author Organization [facility] Address [address] [facility] [address] [place], [place] [phone] Care Team Providers Care Staff Toxicologist Name Role Phone Answer, Declined Unavailable Unavailable SNOOK, YUE Unavailable [phone] REASON FOR VISIT neuropathy Encounters Encounter Location Date Provider Diagnosis [facility] [place] [address] [place], [place] [id number] 04/02/2024 YUE WILLIAMSON Plan Of Treatment Next Appt Details Provider Name:YUE WILLIAMSON, 04:30:00 PM, [address], [place], [place], [id number], Progress Notes * MARIUSZ KarenB: 4 (59 yo F)Acc No.[id number]:04/02/2024 Progress Notes Patient: Adalgisa JUAREZ Provider: Rafaela Williamson DPM :1965 A ge:58 Y S ex:Female Date:04/02/2024 Address:[address] [place] [phone] Subjective: * Chief Complaints: * 1 . Neuropathy. * Medical History: Objective: * Vitals: Assessment: Plan: * Treatment: * Billing Information: * Visit Code: * Procedure Codes: * Electronic signature of YUE WILLIAMSON DPM on 11/09/2024 at 12:03 AM CDT Sign off status: Pending * Provider: Rafaela Williamson DPM Date: 0 04/02/2024 Generated for Charissa jeff/Cesario/Afshan on: 0 11/09/2024 12:03 AM CDT
--- OUTSIDE RECORDS SUMMARY | 2024-11-09 00:04 | XMS_ITS | Referral Summary ---
Author Organization [facility] Address [address] [place] [address] Care Team Providers Care Molder Sweep Name Role Phone Dianna Prater Primary Care Provider + Allergies No known active allergies Medications FreeStyle Eric 14 Day Sensor kit as directed 022 Active gabapentin (NEURONTIN) 400 mg capsule Take 1 capsule (400 mg total) by mouth 2 (two) times a day 021 Active hydroCHLOROthiaz stephanie (HYDRODIURIL) 25 mg tablet hydrochlorothiazide 25 mg tablet TAKE ONE TABLET BY MOUTH ONCE DAILY IN THE MORNING Active lisinopriL (PRINIVIL,ZESTRI L) 40 mg tablet Take 1 tablet (40 mg total) by mouth daily Act grisel magnesium oxide (MAG-OX) 400 mg (241.3 mg elemental magnesium) tablet magnesium oxide 400 mg (241.3 mg magnesium) tablet TAKE 1 TABLET BY MOUTH ONCE DAILY AT BEDTIME 021 Active metFORMIN (GLUCOPHAGE) 1,000 mg tablet 1 tablet (1,000 mg total) 2 (two) times a day with meals Active lancing device with lancets kit by other route Active blood glucose diagnostic ([place] Blood Glucose Test Strip) strip 1 each by other route as needed Active flash glucose scanning reader (FreeStyle Eric 14 Day [place]) [facility] FreeStyle Eric 14 Day [place] USE DIRECTED Active pen needle, diabetic 31 gauge x 5/16 needle BD Ultra-Fine Short Pen Needle 31 gauge x 5/16 USE WITH INSULIN NIGHTLY Active busPIRone (BUSPAR) 5 mg tablet TAKE 1 TABLET BY MOUTH TWICE A DAY FOR 90 DAYS. Active sertraline (ZOLOFT) 100 mg tablet Take 1 tablet (100 mg total) by mouth daily Active simvastatin (ZOCOR) 80 mg tablet Take 1 tablet (80 mg total) by mouth daily Active ergocalciferol (VITAMIN D) 50,000 unit capsule Active SEMGLEE-yfgn 100 unit/mL (3 mL) pen for injection 30 Units 2 (two) times a day Active albuterol HFA (PROVENTIL HFA,VENTOLIN HFA,PROAIR HFA) 90 mcg/actuation inhaler Inhale 2 puffs Active Ozempic 0.25 mg or 0.5 mg (2 mg/3 mL) pen injector injection Taking .3mg now 023 Active Farxiga 10 mg tablet Take 1 tablet (10 mg total) by mouth daily 023 Active cyclobenzaprine (FLEXERIL) 10 mg tabletIndication s:Sacroiliitis TAKE 1 TABLET BY MOUTH THREE TIMES A DAY NEEDED FOR MUSCLE SPASMS 90 tablet 1 023 Active celecoxib (CeleBREX) 200 mg capsuleIndicatio ns:Sacroiliitis, Spondylosis of cervical region without myelopathy or radiculopathy TAKE 1 CAPSULE BY MOUTH TWICE A DAY 60 capsule 3 024 Active methocarbamoL (ROBAXIN) 500 mg tabletIndication s:Chronic bilateral low back pain without sciatica Take 1 tablet (500 mg total) by mouth 3 (three) times a day 90 tablet 3 024 Active Active Problems Problem Noted Date Diagnosed Date Cervical radiculopathy 08/04/2022 Sacroiliitis 08/04/2022 Bilateral carpal tunnel syndrome 05/18/2022 Cubital tunnel syndrome 05/18/2022 Cervical spinal stenosis 11/09/2021 Chronic bilateral low back pain without sciatica 11/09/2021 Hand weakness 11/09/2021 Chronic diastolic heart failure 03/25/2021 Dyslipidemia 03/25/2021 Obesity, Class II, BMI 35-39.9 03/25/2021 Primary hypertension 03/25/2021 Immunizations Immunization Administration Dates Next Due Hep A, Adult 05/11/2013,10/24/2012 Hep A, Unspecified 05/11/2013,10/24/2012 Hep B Vaccine 03/05/2021,02/04/2021 Influenza, Quadrivalent, Spl it, Intramuscular 06/05/2018,05/09/2017,08/05/2014 Influenza, Quadrivalent, Spl it, Preservative Free, Intramuscular 04/21/2021,06/13/2020 Influenza, Trivalent, IM (MDV) 06/05/2014 Pneumococcal Polysaccharide PPV23 05/09/2017 Tdap 01/31/2021 ZOSTER Recombinant 04/21/2021,02/04/2021 Social History Tobacco Use Types Packs/Day Years Used Date Smoking Tobacco: Former Cigarettes 2014 Smokeless Tobacco: Never AUDIT-C Answer Date Recorded Frequency of Alcohol Consumption Not on file 04/27/2023 Q2: How many drinks containi ng alcohol do you have on a typical day when you are drinking? 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 Gender Identity Not on file Sexual Orientation Not on file Last Filed Vital Signs Vital Sign Reading Time Taken Comments Blood Pressure 156/72 04/27/2023 1:55 PM CDT Pulse 75 04/27/2023 1:55 PM CDT Temperature 36.4 C (97.5 F) 04/27/2023 1:55 PM CDT Respiratory Rate 16 04/27/2023 1:55 PM CDT Oxygen Saturation 98% 04/27/2023 1:55 PM CDT Inhaled Oxygen Concentration - - Weight 101.6 kg (224 lb) 02/24/2023 2:13 PM CDT Height 167.6 cm (5' 6 ) 02/24/2023 2:13 PM CDT Body Mass Index 36.15 02/24/2023 2:13 PM CDT Plan of Treatment Not on file Goals Goal Patient Goal Type Associated Problems Recent Progress Patient-Stated? Author CCM Chronic Pain Care Plan Chronic Care Management Improving( 3:44 PM CDT) No Theodora Lincoln, DANI Note: Problem: Chronic Pain Goals: 1. Minimize further functional decline 2. Maximize quality of life 3. Control pain Strategies: - Activity/exercise program recommendation - Conservative stepwise pain medicine strategy with multi-disciplinary approach - Recommend healthy lifestyle strategies and compensatory methods as needed Reduce the likelihood of falling Lifestyle Vanita Moser RN Note: Below are four things you can do to prevent falls: Begin an exercise program to improve your leg strength & balance Ask your doctor or pharmacist to review your medicines Get annual eye check-ups & update your eyeglasses Make your home safer by: Removing clutter & tripping hazards Putting railings on all stairs & adding grab bars in the bathroom Having good lighting, especially on stairs Contact your local community or [facility] for information on exercise, fall prevention programs, or options for improving home safety. Insurance [facility] HEALTH PLAN HEALTH PLAN Care Teams Molder Sweep Relationship Specialty Start Date End Date Dianna Prater PA PCP - General Physician Machine Operator Packaging 08/12/21
--- OUTSIDE RECORDS SUMMARY | 2024-11-09 00:04 | XMS_ITS | Clinical Summary ---
Author Organization [facility] Address [address] [place] [address] Care Team Providers Care Environmental Designer Name Role Phone Dianna Prater Primary Care [...] glucose scanning reader (FreeStyle Eric 14 Day [place]) [facility] FreeStyle Eric 14 Day [place] USE DIRECTED Active pen needle, diabetic 31 [...] PPV23 05/09/2017 Tdap 01/31/2021 ZOSTER Recombinant 04/21/2021,02/04/2021 Surgical History Surgery Date Site/Laterality Comments KNEE SURGERY 08/15/2000 - 08/14/2001 Left Medical History Medical History Date Comments Anxiety Depression Type 2 diabetes mellitus (HCC) Hypertension Arthritis Low back pain Neck pain Chronic pain disorder Joint pain Family History Medical History Relation Name Comments Cancer Father Diabetes Father Diabetes Maternal Grandmother Cancer Mother Diabetes Paternal Grandfather Relation Name Status Comments Father Maternal Grandmother Mother Paternal Grandfather Social History Tobacco Use Types Packs/Day Years Used Date Smoking Tobacco: Former Cigarettes 1 8 - 2014 Smokeless Tobacco: Never AUDIT-C Answer Date [...] on file 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 Gender Identity Not on file Sexual Orientation Not on file Obstetrics History Last Filed Vital Signs Vital Sign Reading [...] 02/24/2023 2:13 PM CDT Plan of Treatment Health Maintenance Due Date Last Done Comments Breast Cancer Screening-Mammogram 1965 Cervical Cancer Screening 1965 Colon Cancer Screening-Colonoscopy 1965 Depression Screening 1965 Hepatitis C Screening 1965 Regular Well Visit/Exam 18-64 1982 Pneumococcal vaccine <65 (2 of 2 - PCV) 05/09/2018 05/09/2017 Covid-19 Vaccine (4 - 2023-2 5 season) 2024 02/25/2021, 02/04/2021, 01/28/2021 Influenza Vaccine (#1) 2024 , 06/13/2020, 06/05/2018, Additional history exists DTaP/Tdap/Td Vaccine (2 - Td or Tdap) 01/31/2031 01/31/2021 Hepatitis B Screening Completed 03/05/2021, 021 Zoster Vaccine Completed 04/21/2021, 02/04/2021 Goals Goal Patient Goal Type Associated Problems Recent Progress Patient-Stated? Author CCM Chronic Pain Care Plan Chronic Care Management Improving( 3:44 PM CDT) No Theodora Lincoln, RN Note: Problem: Chronic Pain Goals: 1. Minimize further functional decline 2. Maximize quality of life 3. Control pain Strategies: - Activity/exercise program recommendation - Conservative stepwise pain medicine strategy with multi-disciplinary approach - Recommend healthy lifestyle strategies and compensatory methods as needed Reduce the likelihood of falling Lifestyle No Vanita Moreno, DANI Note: Below are four things you can [...] on stairs Contact your local community or senior center for information on exercise, fall prevention programs, or options for improving home safety. Insurance [facility] HE[facility] PLAN [facility] PLAN [facility]AN [facility] PLAN [facility] Care Teams Environmental Designer Relationship Specialty Start Date End Date Dianna Prater PA PCP - General Physician Housing Assistant 08/12/21
--- OUTSIDE RECORDS SUMMARY | 2024-11-09 00:04 | XMS_ITS | Encounter Summary ---
Author Organization [facility] Address [address] [place] [address] Care Team Providers Care Woods Laborer Name Role Phone Dianna Prater PA-C Primary Care Provider [phone] Encounter Details Date Type Department Care Team (Late Contact Info) Description 09/23/2021 [facility] [address] Luis Eduardo Hutchins MA Social History Tobacco Use Types Packs/Day Years Used Date Smoking Tobacco: Former Cigarettes Q uit: 2011 Smokeless Tobacco: Never Alcohol Use Standard Drinks/Week Comments Yes 0 (1 standard drink = 0.6 oz pur e alcohol) rare AUDIT-C Answer Date Recorded Frequency of Alcohol Consumption Never 10/31/2018 Average Number of Drinks Not on file 019 Frequency of Binge Drinking Not on file 10/13 Comments Unknown Sex and Gender Information Value Date Recorded Sex Assigned at Not on file Legal Sex Female 5:46 PM CDT Gender Identity Not on file Sexual Orientation Not on file COVID-19 Exposure Response Date Recorded In the last 10 days, have yo u been in contact with someone who was confirmed or suspected to have Coronavirus/COVID-19? 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 documented as of this encounter Plan of Treatment Upcoming Encounters Date Type Department Care Team (Late Contact Info) Description 02/11/2025 3:00 PM CDT Office Visit [facility] Multispecialty Care [facility] [address] [facility] [place] [phone] Cindi Desai MD [address] [facility], [address] [place] [address] documented as of this encounter Procedures Procedure Name Priority Date/Time Associated Diagnosis Comments COMPREHENSIVE METABOLIC PANEL Routine 08/18/2021 documented in this encounter Results * (ABNORMAL) COMPREHENSIVE METABOLIC PANEL (08/18/2021) SODIUM S/P/B 143 POTASSIUM S/P/B 4.5 CO2 22 CHLORIDE S/P/B 102 GLUCOSE 135 mg/dL CALCIUM S/P/B 9.6 BUN 36 CREATININE S/P/B 1.29(A) 0.5 - 1.0 EGFR AFR. AMER. 53 <=90 EGFR NON-AFR. AMER. 46 <=90 ALKALINE PHOSPHATASE S/P/B 81 ALT 19 AST 23 BILIRUBIN TOTAL S/P/B <0.2 ALBUMIN S/P/B 4.3 3.5 - 5.0 TOTAL PROTEIN S/P/B 7.0 GLOBULIN 2.7 08/18/2021 us Doc [facility] LABORATORY Final Result documented in this encounter Visit Diagnoses Not on filedocumented in this encounter Care Teams Woods Laborer Relationship Specialty Start Date End Date Dianna Prater PA-C [address] [place] [id number] PCP - General NURSE PRACTITIONER 03/23/21 documented as of this encounter
--- OUTSIDE RECORDS SUMMARY | 2024-11-09 00:04 | XMS_ITS | Clinical Summary ---
Author Organization [facility] Address [address] [place] [address] Care Team Providers Care Steam Turbine Assembler Name Role Phone Dianna Prater PA-C Primary Care Provider [phone] Allergies No known active allergies Medications Multiple Vitamins-Minerals (MULTIVITAMIN ADULTS 50+ OR) Activ e lisinopril 40 MG tablet Take 1 tablet (40 mg total) by mouth daily. Active hydrochlorothiazid e 25 MG tablet Take 1 tablet (25 mg total) by mouth every morning. Active metFORMIN 1000 MG tablet Take 1 tablet (1,000 mg total) by mouth 2 (two) times daily with meals. Takes when needed Active fluticasone 110 MCG/ACT inhaler Inhale 1 puff into the lungs 2 (two) times daily. Active cyclobenzaprine 10 MG tablet Take 1 tablet (10 mg total) by mouth nightly as needed. 1 Active magnesium oxide 400 MG tablet Take 1 tablet (400 mg total) by mouth nightly at bedtime. 1 Active gabapentin 400 MG capsule Take 1 capsule (400 mg total) by mouth 3 (three) times daily. Now taking 400 mg twice daily 1 Active simvastatin (ZOCOR) 80 MG tablet 2 Active sertraline (ZOLOFT) 100 MG tablet 2 Active busPIRone (BUSPAR) 5 MG tablet Take 1 tablet (5 mg total) by mouth 2 (two) times daily. 2 Active Insulin Glargine-yfgn (SEMGLEE, YFGN,) 100 UNIT/ML Solution Pen-injector Now taking 30units morning and 30units around dinner time 2 Active Canagliflozin (INVOKANA OR) Active dapagliflozin (FARXIGA) 10 MG tablet Take 1 tablet (10 mg total) by mouth daily. Active methocarbamol (ROBAXIN) 500 MG tablet Take 1 tablet (500 mg total) by mouth 3 (three) times daily. Active celecoxib (CELEBREX) 200 MG capsule Take 1 capsule (200 mg total) by mouth 2 (two) times daily. Active tirzepatide (MOUNJARO) 5 MG/0.5ML injection A ctive vitamin D2, ergocalciferol, (VITAMIN D, ERGOCALCIFEROL,) 1.25 mg capsuleIndications :Vitamin D insufficiency Take 1 capsule (1.25 mg total) by mouth once a week. 12 capsule 3 4 Active HYDROcodone-acetam inophen (NORCO) 5-325 MG tablet Take 2 tablets by mouth every 6 (six) hours as needed. Now taking scheduled 1 tab 2-3 tiems daily 4 Active albuterol sulfate HFA 108 (90 Base) MCG/ACT inhaler Inhale 2 puffs into the lungs every 6 (six) hours as needed for Wheezing. Active Active Problems Problem Noted Date Diagnosed Date Bilateral carpal tunnel syndrome 05/18/2022 Chronic bilateral low back pain without sciatica 11/09/2021 Cervical spinal stenosis 11/09/2021 Type 2 diabetes mellitus, wi th long-term current use of insulin ([facility]) 03/25/2021 Primary hypertension 03/25/2021 Chronic diastolic heart failure ([facility] ) 03/25/2021 Dyslipidemia 03/25/2021 Obesity, Class II, BMI 35-39.9 03/25/2021 Immunizations Name Administration Dates Next Due Hepatitis A (Generic) 05/11/2013,10/24/2012 Influenza (Generic) 06/05/2018,05/09/2017,2013 Influenza Adult (Generic) 06/05/2014 Pneumococcal (Pneumovax 23) 05/09/2017 Family History Medical History Relation Comments Cancer Father liver/kidney Heart Attack Maternal Grandmother Cancer Mother breast Relation Status Comments Father Maternal Grandmother Mother Social History Tobacco Use Types Packs/Day Years Used Date Smoking Tobacco: Former Cigarettes Q uit: 2011 Smokeless Tobacco: Never Tobacco Cessation:Counseling Given: No Alcohol Use Standard Drinks/Week Comments Yes 0 (1 standard drink = 0.6 oz pur e alcohol) rare AUDIT-C Answer Date Recorded Frequency of Alcohol Consumption Never 10/31/2018 Average Number of Drinks Not on file 019 Frequency of Binge Drinking Not on file 10/13 PHQ-2 Answer Date Recorded Patient Health Questionnaire-2 Score 0 02/06/2024 Comments Unknown Sex and Gender Information Value Date Recorded Sex Assigned at Not on file Legal Sex Female 5:46 PM CDT Gender Identity Not on file Sexual Orientation Not on file Last Filed Vital Signs Vital Sign Reading Time Taken Comments Blood Pressure 107/58 02/06/2024 2:43 PM CDT Pulse 69 02/06/2024 2:43 PM CDT Temperature 36.2 C (97.1 F) 02/06/2024 2:43 PM CDT Respiratory Rate 18 10/31/2018 12:49 PM CDT Oxygen Saturation 98% 02/06/2024 2:43 PM CDT Inhaled Oxygen Concentration - - Weight 95.7 kg (211 lb) 02/06/2024 2:43 PM CDT Height 167.6 cm (5' 6 ) 02/06/2024 2:43 PM CDT Body Mass Index 34.06 02/06/2024 2:43 PM CDT Plan of Treatment Upcoming Encounters Date Type Department Care Team (Late st Contact Info) Description 02/11/2025 3:00 PM CDT Office Visit [facility] Multispecialty Care - [facility] 3 [facility], [facility] [address] [place] [address] Cindi Desai MD 3 [facility], [facility] [address] [place] [address] Health Maintenance Due Date Last Done Comments Cervical Cancer Screening Pap Smear (Age 30 to 64) Every 3 Years 1965 Colorectal Cancer Screening Colonoscopy (10 Years) 1965 Kidney Health Evaluation 1965 Annual Physical 1967 Diabetes: Retinopathy Eye Exam 1982 Hepatitis C 1982 Cervical Cancer Screening Pap with HPV Testing (Age 30 to 64) Every 5 Years 1994 Cervical Cancer Screening with HPV 1994 Mammogram Screening 2004 Pneumococcal Vaccine: Pediatrics (0 to 5 Years) and At-Risk Patients (6 to 64 Years) (2 of 2 - PCV) 05/09/2018 05/09/2017 Hemoglobin A1C 10/31/2020 05/03/2020 Lipid Panel 02/11/2022 02/11/2021, 05/03/2020 COVID-19 Vaccine ( - season) 2024 Influenza Adult (#1) 2024 04/21/2021, 06/13/2020, 06/05/2018, Additional history exists RSV Immunization or 60+ Years (1 - Risk 60-74 years 1-dose series) 2024 PHQ-2 ([facility] [place]) 08/15/2024 02/06/2024 DTaP, Tdap and Td Vaccines (2 - Td or Tdap) 01/31/2031 01/31/2021 Zoster Vaccines Completed 04/21/2021, 02/04/2021 Meningococcal B Vaccine Aged Out No l onger eligible based on patient's age to complete this topic Meningococcal Vaccine Aged Out No nayely fiona eligible based on patient's age to complete this topic RSV Immunizations Under 20 Months Aged Out No longer eligible based on patient's age to complete this topic Procedures Procedure Name Priority Date/Time Associated Diagnosis Comments LIPID PANEL Routine 05/03/2020 9:09 AM CDT Diabetic polyneuropathy HEMOGLOBIN, GLYCOSYLATED Routine 05/03/2020 9:09 AM CDT Diabetic polyneuropathy from Last 3 Months or Most Recently Relevant to Health Maintenance Results * (ABNORMAL) HEMOGLOBIN, GLYCOSYLATED (05/03/2020 9:09 AM CDT) HGB A1C 12.5(H) <5.7 % 05/03/2020 1:01 PM CDT [facility] Comment: ADA GUIDELINES 2010 5.7 TO 6.4% INCREASED RISK OF DIABETES > OR = 6.5% CONSISTENT WITH DIABETES ESTIMATED AVG GLUCOSE 312 mg/dL 05/03/2020 1:01 PM CDT [facility] 05/03/2020 9:09 AM CDT Carli Schwartz MD LABORATORY Final Result [facility] [address] [place] [address], [place] [phone] * (ABNORMAL) LIPID PANEL (05/03/2020 9:09 AM CDT) CHOLESTEROL 238(H) <200 MG/DL 05/03/2020 10:16 AM CDT [facility] TRIGLYCERIDES 294(H) <150 MG/DL 05/03/2020 10:16 AM CDT [facility] HDL 38(L) >40.0 MG/DL 05/03/2020 10:16 AM CDT [facility] LDL (CALCULATED) 141(H) <100 MG/DL 05/03/2020 10:16 AM T [facility] NON HDL CHOLESTEROL 200(H) <130 MG/DL 05/03/2020 10:16 AM CDT [facility] CHOL/HDL RATIO 6.3(H) 0.0 - 4.5 05/03/2020 10:16 AM CDT [facility] VLDL CALCULATION 59(H) 5 - 55 MG/DL 05/03/2020 10:16 AM T [facility] LIPID INTERPRETATION 05/03/2020 10:16 AM T [facility] Comment: NIH CONCENSUS REPORT RECOMMENDATIONS: ADULT CHILD LOW RISK: CHOLESTEROL <200 <170 TRIGLYCERIDE <150 --- HDL >=60 --- LDL <100 <110 BORDERLINE: CHOLESTEROL 200-239 170-199 TRIGLYCERIDE 150-199 --- HDL 40-59 --- LDL 100-159 110-129 HIGH RISK: CHOLESTEROL >=240 >=200 TRIGLYCERIDE >=200 --- HDL <40 --- LDL >=160 >=130 05/03/2020 9:09 AM CDT us Carli Schwartz MD LABORATORY Final Result [facility] [address] [place] [address], from Last 3 Months or Most Recently Relevant to Health Maintenance Insurance GENERIC - COMMERCIAL Care Teams Steam Turbine Assembler Relationship Specialty Start Date End Date Dianna Prater PA-C [address] [place] [id number] PCP - General NURSE PRACTITIONER 03/23/21
--- NOTE | 2024-11-09 11:51 | SUR.PREOP ---
Blood sugar checked with patients Dexcom. Blood glucose 97.
[2024-11-09 11:52] VITALS: BP 158/79; PULSE 66; RESP 20; TEMP 36.1; O2SAT 99
[2024-11-09] MEDS: LACTATED RINGERS 1,000 ML 150 ML IV CONT (12:02)
--- NOTE | 2024-11-09 12:48 | WPDANESEPPF ---
Anes - Initial Pre Proc Eval Procedure: Operation Date: 11/09/24 13:00 Proposed Procedures p Colonoscopy - Sonu Kaur MD Date/Time: 11/09/24 12:48 Surgeon: Sonu Kaur MD Pre Op Diagnosis: other fecal abnormalities Patient Data Age: 59 Gender: F Height: 1.68 m Weight: 98.4 kg Last Vital Signs Temp 36.1 C L 11/09/24 11:52 Pulse 66 11/09/24 11:52 Resp 20 11/09/24 11:52 BP 158/79 H 11/09/24 11:52 Pulse Ox 99 11/09/24 11:52 O2 Del Method Room Air 11/09/24 11:52 Allergies Allergy/AdvReac Type Severity Reaction Status Date / Time No Known Allergies Allergy Verified 11/09/24 11:47 Home Medications ?Medication ?Instructions ?Recorded ?Confirmed ?Type buspirone 15 mg tablet 15 mg PO TID 12/28/19 11/09/24 History gabapentin 400 mg capsule 400 mg PO TID 12/28/19 11/09/24 History glipizide 10 mg tablet 10 mg BID 12/28/19 05/17/22 History hydrochlorothiazide 25 mg tablet 25 mg PO DAILY 12/28/19 11/09/24 History levothyroxine 25 mcg tablet 25 mcg PO DAILY 12/28/19 11/09/24 History lisinopril 40 mg tablet 40 mg PO DAILY 12/28/19 11/09/24 History sertraline 25 mg tablet 25 mg PO DAILY 12/28/19 11/09/24 History simvastatin 40 mg tablet 40 mg PO DAILY 12/28/19 11/09/24 History insulin glargine 100 unit/mL 20 unit subcut BID 01/31/21 11/09/24 History subcutaneous solution (Lantus U-100 Insulin) cephalexin 500 mg capsule 500 mg PO Q8H 7 days #21 caps 05/17/22 Rx albuterol sulfate 90 mcg/actuation 2 puff inhalation PRN 10/30/24 10/30/24 History aerosol inhaler alpha lipoic acid 600 mg capsule 600 mg PO DAILY 10/30/24 11/09/24 History ergocalciferol (vitamin D2) 1,250 1,250 mcg PO WEEKLY 10/30/24 11/09/24 History mcg (50,000 unit) capsule (Vitamin D2) hydrocodone 5 mg-acetaminophen 325 1 tablet PO DAILY 10/30/24 11/09/24 History mg tablet magnesium oxide 400 mg (241.3 mg 400 mg PO DAILY 10/30/24 11/09/24 History magnesium) tablet metformin 1,000 mg tablet 1,000 mg PO BID 10/30/24 11/09/24 History methocarbamol 500 mg tablet 500 mg PO TID 10/30/24 11/09/24 History tirzepatide 5 mg/0.5 mL 5 mg subcut WEEKLY 10/30/24 11/09/24 History subcutaneous pen injector (Mounjaro) vitamin B6-vitamin E-magnesium 1 tablet PO DAILY 10/30/24 11/09/24 History tablet Patient hx anesthesia problems: none Family hx anesthesia problems: none Results Review: All pre-operative results and documents have been reviewed as part of the pre-operative evaluation. [facility] Past Medical History Medical History Obese Depression Traumatic tear of right rotator cuff Hypothyroid Neuropathy High cholesterol HTN (hypertension) Diabetes Surgical History Surgical History History of oral surgery Due to a pencil stuck in palate of mouth History of arthroscopic knee surgery Left Family History Family History Father Cancer Mother Breast cancer Social History Social History Smoking status: Former smoker Tobacco type: cigarettes Second hand tobacco smoke exposure: No Smoking end date: 08/16/05 Alcohol intake: never Substance use: never Substance use type: does not use Living arrangements: with family Occupation/Education: occupation Gender identity (if verbalized by the patient): Female Sexual Orientation (if Verbalized by the Patient): Straight or Heterosexual Anes - Eval Final PreProcedure Day of Procedure 11/09/24 12:48 Patient weight: obese Heart: regular rate and rhythm Lungs: clear to auscultation Airway: Mallampati scale class II Neurological: alert and oriented Last oral intake: >/= 8 hours ASA classification: III Emergent: no Anesthetic plan: proceed Anesthesia type and monitoring: general GIVS and standard monitoring Results Review: All pre-operative results and documents have been reviewed as part of the pre-operative evaluation. Informed Consent: The patient's anesthetic plan and its attendant risks and benefits were discussed with the patient/family/POA. Questions were solicited and answers provided to the satisfaction of the patient/family/POA.
--- NOTE | 2024-11-09 13:11 | PM.IMHP ---
H&P: HPI History of Present Illness Date/Time: 11/09/24 13:11 Chief Complaint: Positive Cologuard test Narrative: this patient is being referred for the finding of a positive Cologuard test, for colonoscopy. There is no family history of colorectal cancer or GI symptoms. Review of Systems Review of Systems: All systems reviewed & are unremarkable except as noted in HPI and below PMFSH Past Medical History Medical History Obese Depression Traumatic tear of right rotator cuff Hypothyroid Neuropathy High cholesterol HTN (hypertension) Diabetes Surgical History Surgical History History of oral surgery Due to a pencil stuck in palate of mouth History of arthroscopic knee surgery Left Family History Family History Father Cancer Mother Breast cancer Social History Social History Smoking status: Former smoker Tobacco type: cigarettes Second hand tobacco smoke exposure: No Smoking end date: 08/16/05 Alcohol intake: never Substance use: never Substance use type: does not use Living arrangements: with family Occupation/Education: occupation Gender identity (if verbalized by the patient): Female Sexual Orientation (if Verbalized by the Patient): Straight or Heterosexual Meds Home Medications and Allergies Home Medications ?Medication ?Instructions ?Recorded ?Confirmed ?Type buspirone 15 mg tablet 15 mg PO TID 12/28/19 11/09/24 History gabapentin 400 mg capsule 400 mg PO TID 12/28/19 11/09/24 History glipizide 10 mg tablet 10 mg BID 12/28/19 05/17/22 History hydrochlorothiazide 25 mg tablet 25 mg PO DAILY 12/28/19 11/09/24 History levothyroxine 25 mcg tablet 25 mcg PO DAILY 12/28/19 11/09/24 History lisinopril 40 mg tablet 40 mg PO DAILY 12/28/19 11/09/24 History sertraline 25 mg tablet 25 mg PO DAILY 12/28/19 11/09/24 History simvastatin 40 mg tablet 40 mg PO DAILY 12/28/19 11/09/24 History insulin glargine 100 unit/mL 20 unit subcut BID 01/31/21 11/09/24 History subcutaneous solution (Lantus U-100 Insulin) cephalexin 500 mg capsule 500 mg PO Q8H 7 days #21 caps 05/17/22 Rx albuterol sulfate 90 mcg/actuation 2 puff inhalation PRN 10/30/24 10/30/24 History aerosol inhaler alpha lipoic acid 600 mg capsule 600 mg PO DAILY 10/30/24 11/09/24 History ergocalciferol (vitamin D2) 1,250 1,250 mcg PO WEEKLY 10/30/24 11/09/24 History mcg (50,000 unit) capsule (Vitamin D2) hydrocodone 5 mg-acetaminophen 325 1 tablet PO DAILY 10/30/24 11/09/24 History mg tablet magnesium oxide 400 mg (241.3 mg 400 mg PO DAILY 10/30/24 11/09/24 History magnesium) tablet metformin 1,000 mg tablet 1,000 mg PO BID 10/30/24 11/09/24 History methocarbamol 500 mg tablet 500 mg PO TID 10/30/24 11/09/24 History tirzepatide 5 mg/0.5 mL 5 mg subcut WEEKLY 10/30/24 11/09/24 History subcutaneous pen injector (Mounjaro) vitamin B6-vitamin E-magnesium 1 tablet PO DAILY 10/30/24 11/09/24 History tablet Allergies Allergy/AdvReac Type Severity Reaction Status Date / Time No Known Allergies Allergy Verified 11/09/24 11:47 Vital Signs Vital Signs - 24 hr 11/09/24 11:52 Temperature 97 F L Pulse Rate 66 Respiratory Rate 20 Blood Pressure 158/79 H Pulse Oximetry 99 Oxygen Delivery Room Air Exam Const: General: cooperative and healthy appearing Resp: Effort & Inspection: normal respiratory effort and able to speak in complete sentences Auscultation: clear to auscultation bilaterally Cardio: Rate: regular rate Rhythm: regular rhythm GI: Inspection: normal to inspection GI Palp: No No hepatosplenomegaly present Auscultation: normal bowel sounds Rectal Exam: deferred Skin: General skin exam: normal color Psych: Appearance: grossly normal Mental Status: mental status grossly normal Assessment and Plan Assessment and plan (1) Positive colorectal cancer screening using Cologuard test: Code(s): R19.5 - Other fecal abnormalities Status: Acute Assessment and Plan: The patient is deemed a good candidate for the procedure. Consent signed. Will proceed.
[2024-11-09 13:50] VITALS: BP 114/49; PULSE 64; RESP 15; O2SAT 100
[2024-11-09 14:00] VITALS: BP 127/62; PULSE 70; RESP 20; O2SAT 100
[2024-11-09 14:10] VITALS: BP 140/61; PULSE 70; RESP 17; O2SAT 100
== END 2024-11-09 14:25 | disposition home or self-care (01) ==
PROVIDERS: PCP Physician Assistant; Referring Provider Physician Assistant; Visit Provider Internal Medicine Gastroenterology
PROC: 0DJD8ZZ Inspection of Lower Intestinal Tract, Via Natural or Artificial Opening Endoscopic (ICD-10-PCS; CPT 45378; principal; 2024-11-09 13:00)
DX: R19.5 Other fecal abnormalities (principal); E11.9 Type 2 diabetes mellitus without complications; I10 Essential (primary) hypertension; E03.9 Hypothyroidism, unspecified; E78.00 Pure hypercholesterolemia, unspecified; F32.A Depression, unspecified; G62.9 Polyneuropathy, unspecified; E66.9 Obesity, unspecified; Z68.35 Body mass index [BMI] 35.0-35.9, adult; Z79.84 Long term (current) use of oral hypoglycemic drugs; Z79.4 Long term (current) use of insulin; Z79.51 Long term (current) use of inhaled steroids; Z79.891 Long term (current) use of opiate analgesic; Z79.85 Long-term (current) use of injectable non-insulin antidiabetic drugs; Z98.890 Other specified postprocedural states; Z87.891 Personal history of nicotine dependence; Z80.3 Family history of malignant neoplasm of breast
CPT/HCPCS: 45378; J2003; J2371; J2704; J7120

== ENCOUNTER 2025-04-02 15:33 | Outpatient (CLI) | payer OTHER, SELFPAY ==
--- OUTSIDE RECORDS SUMMARY | 2024-04-02 10:50 | XMS_ITS ---
Author Organization [facility] Address [address] [facility] [address] [place], [place] [id number] Care Team Providers Care Nursing Care Attendant Name Role Phone Answer, Declined Unavailable Unavailable SNOOK, YUE Unavailable [phone] REASON FOR VISIT neuropathy Encounters Encounter Location Date Provider Diagnosis [facility] [address] [place], [place] [id number] 04/02/2024 YUE WILLIAMSON Plan Of Treatment Next Appt Details Provider Name:YUE WILLIAMSON, 04:30:00 PM, [address], [place], [place], [id number], Progress Notes * MARIUSZ KarenB: 4 (59 yo F)Acc No.[id number]:04/02/2024 Progress Notes Patient: Adalgisa JUAREZ Provider: Rafaela Williamson DPM :1965 A ge:58 Y S ex:Female Date:04/02/2024 Address:[address] [place] [id number] Subjective: * Chief Complaints: * 1 . Neuropathy. * Medical History: Objective: * Vitals: Assessment: Plan: * Treatment: * Billing Information: * Visit Code: * Procedure Codes: * Electronic signature of YUE WILLIAMSON DPM on 04/02/2025 at 03:59 PM CDT Sign off status: Pending * Provider: Rafaela Williamson DPM Date: 0 04/02/2024 Generated for Charissa jeff/Cesario/Afshan on: 0 04/02/2025 03:59 PM CDT
--- NOTE | 2025-04-02 | ECHO_ITS ---
Patient Info Name: Adalgisa Woo Age: 59 years : 1965 Gender: Female Ht: 66 in Wt: 219 lbs BSA: 2.19 m2 HR: 65 bpm BP: 102 / 56 mmHg Technical Quality: Good Exam Date: 04/02/2025 3:49 PM Patient Status: O Admit Date: 04/02/2025 Exam Type: CA echo doppler color flow Complete two-dimensional, color flow and Doppler transthoracic echocardiogram is performed. Dumpster Operator: Edith Carmona Attending Provider: Dianna Prater Summary 1. Complete two-dimensional, color flow and Doppler transthoracic echocardiogram is performed. 2. Left ventricular systolic function is hyperdynamic, estimated at 65-70. 3. There is mildly increased left ventricular wall thickness. 4. The left ventricular diastolic function is indeterminate. 5. There is trace aortic valve regurgitation. 6. There is mild aortic valve calcification. Left Ventricle Left ventricular chamber dimension is normal. Left ventricular systolic function is hyperdynamic, estimated at 65-70. There is mildly increased left ventricular wall thickness. Left ventricular septal wall motion is normal. The left ventricular diastolic function is indeterminate. Right Ventricle Right ventricular chamber dimension is normal. Right ventricular systolic function is normal. Left Atria Left atrial chamber dimension is normal. Right Atria Right atrial chamber dimension is normal. Aortic Valve The aortic valve is probable trileaflet. There is no aortic valve sclerosis. There is no aortic valve stenosis. There is trace aortic valve regurgitation. There is mild aortic valve calcification. Pulmonic Valve The pulmonic valve is normal. There is no pulmonic valve stenosis. There is no pulmonic regurgitation. Mitral Valve The mitral valve has normal leaflets. There is no mitral valve stenosis. There is no mitral valve regurgitation. Tricuspid Valve The tricuspid valve leaflets are normal. There is no significant tricuspid valve stenosis. There is no tricuspid valve regurgitation. Pericardium/Pleural The pericardium appears normal. There is no pericardial effusion. Inferior Vena Cava Normal inferior vena cava with >50% collapse upon inspiration consistent with normal right atrial pressure, 5 mmHg. Aorta The aortic root size at the sinus of Valsalva is normal. The prox ascending aorta size is normal. Left Ventricular Outflow Tract Name Value Normal LVOT 2D LVOT Diameter 1.9 cm LVOT Doppler LVOT Peak Velocity 137 cm/s LVOT Peak Gradient 7 mmHg LVOT Mean Gradient 4 mmHg LVOT VTI 31 cm LVOT VTI/AV VTI Ratio 0.8 LVOT Stroke Volume 88 ml LVOT CO 5.4 l/min LVOT CI 2.5 l/min/m2 Pulmonic Valve Name Value Normal RVOT Doppler RVOT Peak Velocity 91 cm/s RVOT Peak Gradient 3 mmHg PV Doppler PV Peak Velocity 110 cm/s PV Peak Gradient 5 mmHg Mitral Valve Name Value Normal MV Diastolic Function MV E Peak Velocity 75 cm/s MV A Peak Velocity 87 cm/s MV E/A 0.9 MV Decel Time (PW) 328 ms MV Annular TDI MV E/e' (Septal) 7.6 MV E/e' (Lateral) 6.6 MV E/e' (Average) 7.1 Tricuspid Valve Name Value Normal Estimated PAP/RSVP RA Pressure 5 mmHg <=5 Aortic Valve Name Value Normal AV Doppler AV Peak Velocity 196 cm/s AV Peak Gradient 15 mmHg AV Mean Gradient 8 mmHg AV VTI 40 cm AV Area (Cont Eq VTI) 2.2 cm2 >=3.0 AV Area (Cont Eq Michael) 2.0 cm2 AV DI (Michael) 0.70 AV Regurgitation 2D LVOT Area 2.9 cm2 Ventricles Name Value Normal LV Dimensions 2D/MM IVS Diastolic Thickness (2D) 1.1 cm 0.6-1.0 LVID Diastole (2D) 5.0 cm 3.8-5.2 LVIW Diastolic Thickness (2D) 1.4 cm 0.6-0.9 LVID Systole (2D) 2.2 cm 2.2-3.5 LVOT Diameter 1.9 cm LV Mass (2D Cubed) 246.54 g 67.00-162.00 LV Mass Index (2D Cubed) 112 g/m2 43-95 Relative Wall Thickness (2D) 0.55 <=0.42 LV Fractional Shortening/Ejection Fraction 2D/MM LV Fractional Shortening (2D) 56 % 27-45 LV EF (2D Teichholz) 86 % LV Diastolic Volume (4C MOD) 119 ml LV EF (4C MOD) 61 % LV Diastolic Volume (2C MOD) 106 ml LV EF (2C MOD) 65 % LV Diastolic Volume (BP MOD) 113 ml 46-106 LV Diastolic Volume Index (BP MOD) 51 ml/m2 29-61 LV Systolic Volume (BP MOD) 41 ml 14-42 LV Systolic Volume Index (BP MOD) 19 ml/m2 8-24 LV EF (BP MOD) 63 % 54-74 LV Diastolic Length (4C) 8.9 cm LV Systolic Length (4C) 7.6 cm LV Stroke Volume (4C MOD) 73 ml Atria Name Value Normal LA Dimensions LA Volume (4C A-L) 55 ml LA Volume (BP A-L) 53 ml RA Dimensions RA Systolic Major [place] Length (4C) 6.1 cm 2.2-2.8 RA Area (4C) 14.5 cm2 <=18.0 Report Signatures
--- OUTSIDE RECORDS SUMMARY | 2025-04-02 15:59 | XMS_ITS | Encounter Summary ---
Author Organization [facility] Address [address] [place] [address] Care Team Providers Care Wireless Sales Associate Name Role Phone Dianna Prater PA-C Primary Care Provider [phone] Encounter Details Date Type Department Care Team (Late Contact Info) Description 09/23/2021 [facility] [address] Luis Eduardo Hutchins MA Social History Tobacco [...] Coronavirus/COVID-19? 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 documented as of this encounter Plan of Treatment Upcoming Encounters Date Type Department Care Team (Late Contact Info) Description 05/16/2025 3:00 PM CDT Office Visit [facility] Multispecialty Care [facility] 3 [facility], [place] [address] [place] [id number] Cindi Desai MD 3 [facility], [place] [address] [place] [address] documented as of this encounter Procedures Procedure [...] on filedocumented in this encounter Care Teams Wireless Sales Associate Relationship Specialty Start Date End Date Dianna Prater PA-C [address] [place] [phone] PCP - General NURSE PRACTITIONER 03/23/21 documented as of this encounter
--- OUTSIDE RECORDS SUMMARY | 2025-04-02 15:59 | XMS_ITS | Clinical Summary ---
Author Organization [facility] Address [address] [place] [address] Care Team Providers Care Boiler Coverer Helper Name Role Phone Dainna Prater PA-C Primary Care Provider [phone] Allergies No known active allergies Medications Multiple Vitamins-Minerals (MULTIVITAMIN ADULTS 50+ OR) Activ e hydrochlorothiazid e 25 MG tablet Take 1 [...] (two) times daily. 2 Active Insulin Glargine-yfgn (STEVO YFALEXANDER,) 100 UNIT/ML Solution Pen-injector Now taking 30units [...] tirzepatide (MOUNJARO) 5 MG/0.5ML injection A ctive HYDROcodone-acetam inophen (NORCO) 5-325 MG tablet Take 2 tablets by mouth every 6 (six) hours as needed. Now taking scheduled 1 tab 2-3 tiems daily 4 Active albuterol sulfate HFA 108 (90 Base) MCG/ACT inhaler Inhale 2 puffs into the lungs every 6 (six) hours as needed for Wheezing. Active vitamin D2, ergocalciferol, (DRISDOL) 1.25 mg capsuleIndications :Vitamin D insufficiency TAKE 1 CAPSULE BY MOUTH ONE TIME PER WEEK 4 capsule 11 5 Active levothyroxine (SYNTHROID) 50 MCG tablet Take 1 tablet (50 mcg total) by mouth every morning. Active nateglinide (STARLIX) 60 MG tablet take 1 tablet by mouth three times a day for 90 days 5 Active Lipoic Acid 150 MG Cap Take 600 mg by mouth daily. Active lisinopril (PRINIVIL) 20 MG tabletIndications: Stage 3b chronic kidney disease (CMS/HCC) Take 2 tablets (40 mg total) by mouth daily. 90 tablet 3 5 Active furosemide (LASIX) 40 MG tabletIndications: Stage 3b chronic kidney disease (CMS/HCC) Take 1 tablet (40 mg total) by mouth daily. 90 tablet 3 5 Active allopurinol (ZYLOPRIM) 100 MG tabletIndications: Hyperuricemia Take 1 tablet (100 mg total) by mouth daily. 90 tablet 3 5 Active Active Problems Problem Noted Date Diagnosed Date Bilateral carpal tunnel syndrome 05/18/2022 Chronic bilateral low back pain without sciatica 11/09/2021 Cervical spinal stenosis 11/09/2021 Type 2 diabetes mellitus, wi th long-term current use of insulin ([facility]) 03/25/2021 Primary hypertension 03/25/2021 Chronic diastolic heart failure ([facility] ) 03/25/2021 Dyslipidemia 03/25/2021 Obesity, Class II, BMI 35-39.9 03/25/2021 Encounters Date Type Department Care Team Description 02/28/2025 Results Follow-Up [facility] [address] [phone] Cindi Desai MD BASIC METABOLIC PANEL, TEST AUTHORIZATION 02/25/2025 Scan [facility] Scanned, [facility] (SCAN) 02/25/2025 Orders Only [facility] [address] [phone] Cindi Desai MD 02/11/2025 3:00 PM CDT Office Visit [facility] - [facility] [address] [facility] [address], [address] [phone] Cindi Desai MD CKD Follow-up 02/11/2025 Travel 02/07/2025 Scan [facility] Scanned, [facility] (SCAN) 02/07/2025 Orders Only [facility] [address] [phone] Cindi Desai MD 01/23/2025 Telephone [facility] [address] [phone] Cindi Desai MD Lab Order from Last 3 Months Immunizations Immunization Administration Dates Next Due Hepatitis A (Generic) [...] Date Recorded Patient Health Questionnaire-2 Score 0 02/11/2025 Comments Unknown Sex and Gender Information Value Date Recorded Sex Assigned at Not on file Legal Sex Female 5:46 PM CDT Gender Identity Not on file Sexual Orientation Not on file Last Filed Vital Signs Vital Sign Reading Time Taken Comments Blood Pressure 104/65 02/11/2025 2:54 PM CDT Pulse 60 02/11/2025 2:54 PM CDT Temperature 36.5 C (97.7 F) 02/11/2025 2:54 PM CDT Respiratory Rate 18 10/31/2018 12:49 PM CDT Oxygen Saturation 99% 02/11/2025 2:54 PM CDT Inhaled Oxygen Concentration - - Weight 103.9 kg (229 lb) 02/11/2025 2:54 PM CDT Height 167.6 cm (5' 6) 02/11/2025 2:54 PM CDT Body Mass Index 36.96 02/11/2025 2:54 PM CDT Plan of Treatment Upcoming Encounters Date Type Department Care Team (Late st Contact Info) Description 05/16/2025 3:00 PM CDT Office Visit [facility] Multispec[facility]ty Care - [address], [facility] [address] [place] [phone] Cindi Desai MD [address] [place] [address], [facility] [address] [place] [address] Health Maintenance Due Date Last Done Comments Cervical Cancer Screening Pa p Smear (Age 30 to 64) Every 3 Years 1964 Colorectal Cancer Screening Colonoscopy (10 Years) 1964 Annual Physical 1967 Diabetes: Retinopathy Eye Exam 1982 Hepatitis C 1982 Cervical Cancer Screening Pa p with HPV Testing (Age 30 to 64) Every 5 Years 1994 Cervical Cancer Screening wi th HPV 1994 Mammogram Screening 2004 Pneumococcal Vaccine: 50+ Years (2 of 2 - PCV) 05/09/2018 05/09/2017 Hemoglobin A1C 10/31/2020 05/03/2020 Lipid Panel 02/11/2022 02/11/2021, 05/03/2020 COVID-19 Vaccine (4 - 2023-2 5 season) 2024 02/25/2021, 02/04/2021, 01/28/2021 RSV Immunization or 60+ Years (1 - Risk 60-74 years 1-dose series) 2024 Kidney Health Evaluation 02/07/2026 02/07/2025 DTaP, Tdap and Td Vaccines ( 2 - Td or Tdap) 01/31/2031 01/31/2021 Zoster Vaccines Completed 04/21/2021, 02/04/2021 PHQ-2 (Physician [place]) Completed 02/11/2025 Meningococcal B Vaccine Aged Out No l onger eligible based on patient's age to complete this topic Meningococcal Vaccine Aged Out No nayely fiona eligible based on patient's age to complete this topic RSV Immunizations Under 20 Months Aged Out No longer eligible b ased on patient's age to complete this topic Procedures Procedure Name Priority Date/Time Associated Diagnosis Comments TEST AUTHORIZATION 02/25/2025 10 :39 AM CDT BASIC METABOLIC PANEL 02/25/2025 10:39 AM CDT OUTSIDE LAB (SCAN ORDER) 02/25/2025 TEST AUTHORIZATION 02/07/2025 3: 47 PM CDT URIC ACID BLOOD 02/07/2025 3:47 PM CDT ALBUMIN URINE RANDOM W/CREATININE 02/07/2025 3:47 PM CDT BASIC METABOLIC PANEL 02/07/2025 3:47 PM CDT OUTSIDE LAB (SCAN ORDER) 02/07/2025 OUTSIDE LAB (SCAN ORDER) 02/07/2025 LIPID PANEL Routine 05/03/2020 9:09 AM CDT Diabetic polyneuropathy HEMOGLOBIN, GLYCOSYLATED Routine 05/03/2020 9:09 AM CDT Diabetic polyneuropathy from Last 3 Months or Most Recently Relevant to Health Maintenance Results * TEST AUTHORIZATION (02/25/2025 10:39 AM CDT) Only the most recent of2 resultswithin the time period is included. REPORT STATUS COMMENT [facility] 1 Comment: Jake Palmer BMP8 Default Jake Palmer BMP8 Default A hand-written panel/profile was received from your office. In accordance with the [facility] Ambiguous Test Code Policy dated February 2003, we have completed your order by using the closest currently or formerly recognized AMA panel. We have assigned Basic Metabolic Panel (8), Test Code #[id number] to this request. If this is not the testing you wished to receive on this specimen, please contact the [facility] Client Inquiry/Technical Services Department to clarify the test order. We appreciate your business. 02/25/2025 10:3 9 AM CDT 02/25/2025 Narrative [facility] - 02/26/2025 3:07 AM CDT Performed at: [address] [place] [id number] Cleaning Professional: Miguel Lam PhD, Phone: [phone] us Cindi Desai MD LABORATORY Final Result [facility] [address] [place] [address] [facility] * (ABNORMAL) BASIC METABOLIC PANEL (02/25/2025 10:39 AM CDT) Only the most recent of2 resultswithin the time period is included. GLUCOSE 152(H) 70 - 99 mg/dL [facility] 1 BUN 54(H) 8 - 27 mg/dL [facility] 1 CREATININE S/P/B 1.58(H) 0.57 - 1.00 mg/dL [facility] 1 GFR ESTIMATE 37(L) >59 mL/min/1.7 3 [facility] 1 BUN CREATININE RATIO 34(H) 12 - 28 [facility] 1 SODIUM S/P/B 140 134 - 144 mmol/L [facility] 1 POTASSIUM S/P/B 3.5 3.5 - 5.2 mmol/L [facility] 1 CHLORIDE S/P/B 97 96 - 106 mmol/L [facility] 1 CO2 25 20 - 29 mmol/L [facility] 1 CALCIUM S/P/B 10.0 8.7 - 10.3 mg/dL [facility] 1 02/25/2025 10:3 9 AM CDT 02/25/2025 Narrative [facility] - 02/26/2025 3:07 AM CDT Performed at: [address] [id number] Cleaning Professional: Miguel Lam PhD, Phone: [phone] Cindi Desai MD LABORATORY Final Result [facility] [address] [place] [address] [facility] * OUTSIDE LAB (SCAN ORDER) (02/25/2025) Only the most recent of3 resultswithin the time period is included. 02/25/2025 us [facility]anned SCANNING Final Resu lt * ALBUMIN URINE RANDOM W/CREATININE (02/07/2025 3:47 PM CDT) CREATININE (URINE) 211.5 Not Estab. mg/dL [facility] 1 ALBUMIN (U) 10.5 Not Estab. ug/mL [facility] 1 ALBUMIN/CREAT RATIO 5 0 - 29 mg/g creat [facility] 1 Comment: Normal: 0 - 29 Moderately increased: 30 - 300 Severely increased: >300 02/07/2025 3:47 PM CDT 02/07/2025 Narrative [facility] - 02/08/2025 11:36 AM CDT Performed at: [address] [place] [id number] Cleaning Professional: Miguel Lam PhD, Phone: [phone] us Cindi Desai MD URINE ORDERABLES Final Result Performing Organization Address [facility] [place] [address] [facility] 1 * (ABNORMAL) URIC ACID BLOOD (02/07/2025 3:47 PM CDT) URIC ACID 9.5(H) 3.0 - 7.2 mg/dL [facility] 1 Comment:Therapeutic target f or gout patients: <6.0 02/07/2025 3:47 PM CDT 02/07/2025 Narrative [facility] - 02/08/2025 11:36 AM CDT Performed at: [address] [place] [id number] Cleaning Professional: Miguel Lam PhD, Phone: [phone] us Cindi Desai MD LABORATORY Final Result Performing Organization Address [facility] [place] [address] [facility] * (ABNORMAL) HEMOGLOBIN, GLYCOSYLATED (05/03/2020 9:09 AM CDT) HGB A1C 12.5(H) <5.7 % 05/03/2020 1:01 PM CDT [facility] Comment: ADA GUIDELINES 2010 5.7 TO 6.4% INCREASED RISK OF DIABETES > OR = 6.5% CONSISTENT WITH DIABETES ESTIMATED AVG GLUCOSE 312 mg/dL 05/03/2020 1:01 PM CDT [facility] 05/03/2020 9:09 AM CDT us Carli Schwartz MD LABORATORY Final Result [facility] [address] [place] [address], * (ABNORMAL) LIPID PANEL (05/03/2020 9:09 AM CDT) CHOLESTEROL 238(H) <200 MG/DL 05/03/2020 10:16 AM CDT [facility] TRIGLYCERIDES 294(H) <150 MG/DL 05/03/2020 10:16 AM CDT [facility] HDL 38(L) >40.0 MG/DL 05/03/2020 10:16 AM CDT [facility] LDL (CALCULATED) 141(H) <100 MG/DL 05/03/2020 10:16 AM CDT [facility] NON HDL CHOLESTEROL 200(H) <130 MG/DL 05/03/2020 10:16 AM CDT [facility] CHOL/HDL RATIO 6.3(H) 0.0 - 4.5 05/03/2020 10:16 AM CDT [facility] VLDL CALCULATION 59(H) 5 - 55 MG/DL 05/03/2020 10:16 AM CDT [facility] LIPID INTERPRETATION 05/03/2020 10:16 AM CDT [facility] Comment: NIH CONCENSUS REPORT RECOMMENDATIONS: ADULT CHILD LOW RISK: CHOLESTEROL <200 <170 TRIGLYCERIDE <150 --- HDL >=60 --- LDL <100 <110 BORDERLINE: CHOLESTEROL 200-239 170-199 TRIGLYCERIDE 150-199 --- HDL 40-59 --- LDL 100-159 110-129 HIGH RISK: CHOLESTEROL >=240 >=200 TRIGLYCERIDE >=200 --- HDL <40 --- LDL >=160 >=130 05/03/2020 9:09 AM CDT Carli Schwartz MD LABORATORY Final Result [facility] [address] [place] [address], [place] [phone] from Last 3 Months or Most Recently Relevant to Health Maintenance Insurance GENERIC - COMMERCIAL [facility] Care Teams Boiler Coverer Helper Relationship Specialty Start Date End Date Dianna Prater PA-C [address] [place] [address] PCP - General NURSE PRACTITIONER 03/23/21
--- OUTSIDE RECORDS SUMMARY | 2025-04-02 15:59 | XMS_ITS | Clinical Summary ---
Author Organization [facility] Medical Office Building B Address [address] [place] [address] Care Team Providers Care Operational Risk Consultant Name Role Phone Dianna Prater Primary Care [...] glucose scanning reader (FreeStyle Eric 14 Day [place]) [facility] FreeStyle Eric 14 Day [place] USE DIRECTED Active pen needle, diabetic 31 [...] Comments Anxiety Depression Type 2 diabetes mellitus Hypertension Arthritis Low back pain Neck pain Chronic pain disorder Joint pain Family History Medical History Relation Name Comments Cancer Father Diabetes Father Diabetes Maternal Grandmother Cancer Mother Diabetes Paternal Grandfather Relation Name Status Comments Father Maternal Grandmother Mother Paternal Grandfather Social History Tobacco Use Types Packs/Day Years Used Date Smoking Tobacco: Former Cigarettes 8 2014 Smokeless Tobacco: Never AUDIT-C Answer Date [...] on file Legal Sex Female 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
--- OUTSIDE RECORDS SUMMARY | 2025-04-02 15:59 | XMS_ITS | Patient Health Record ---
Author Organization [facility] Address [address] [place], [place] [id number] Care Team Providers Care Director Custom Name Role Phone Answer, Declined Unavailable Unavailable YUE WILLIAMSON Unavailable [phone] Reason For Referral No Information Medications Medication [...] Location Date Provider Diagnosis [facility] [place] [address] [place], [place] [id number] 04/09/2024 YUE WILLIAMSON Type 2 diabetes mellitus [...] Appt Details Provider Name:YUE WILLIAMSON, 04:30:00 PM, [address], [facility], [place], [place], [phone], Insurance Providers Payer Name Payer Address Payer Phone Subscriber Number Group Number Insured Name Patient Relationship to Insured Coverage Start Date Coverage End Date [employer]. [address] [address] [place], [place] [id number] Adalgisa Mcclure Self - patient is the insured Medical (General) History Medical History History ICD Code Diabetic Surgical History Surgery Date(Month/Year) Knee Surgery left 2000
== END 2025-04-02 15:34 | disposition home or self-care (01) ==
PROVIDERS: PCP Physician Assistant; Visit Provider Physician Assistant
DX: I51.7 Cardiomegaly (principal); I35.0 Nonrheumatic aortic (valve) stenosis; R93.1 Abnormal findings on diagnostic imaging of heart and coronary circulation; M79.89 Other specified soft tissue disorders
CPT/HCPCS: 93306